=== PATIENT | female | born 1960 | race Caucasian/White ===

== ENCOUNTER → 2018-05-10 | Outpatient (CLI) | payer BC ==
--- NOTE | 2018-05-10 10:01 | Diagnostic Imaging Report ---
PROCEDURE: MRI right joint lower extremity without contrast. TECHNIQUE: Multiplanar, multisequence non contrast-enhanced MRI of the right lower extremity was accomplished. INDICATION: Right knee injury while playing soccer and stepping sideways. Right knee pain and swelling. COMPARISON: None FINDINGS: No acute fracture or dislocation is seen in the right knee. Alignment appears normal. There is a minimal right knee joint effusion. The articular cartilage in the patellofemoral compartment demonstrates thinning, surface irregularity, heterogeneity, with small fissures. There appears to be a small full-thickness defect at the superior pole of the patella (image 18 series 4). The articular cartilage in the medial compartment demonstrates thinning, and surface irregularity with no large full-thickness defect seen. The articular cartilage in the lateral compartment also demonstrates mild thinning with heterogeneity. The medial meniscus demonstrates a complex near full-thickness tear near the posterior root. The lateral meniscus appears intact. The anterior and posterior cruciate ligaments are intact. The medial collateral ligament is intact. The lateral collateral ligamentous complex is intact. The extensor mechanism and the medial and lateral retinacula are intact. There is mild subcutaneous edema at the anterior aspect of the knee. Prominent varicosity is seen anteriorly. No soft tissue fluid collections are seen. IMPRESSION: 1. Complex, near full-thickness tear near the posterior root of the medial meniscus in the right knee. 2. Minimal right knee joint effusion. 3. Mild cartilage loss, with very small full-thickness defect at the patella. Dictated by: Dictated on workstation # [id number]
== END ==
LOC: RAD 07:14
PROVIDERS: ATTEND Nurse Practitioner Family
DX: S83.241A Other tear of medial meniscus, current injury, right knee, initial encounter (principal); M94.8X8 Other specified disorders of cartilage, other site; Y93.66 Activity, soccer
CPT/HCPCS: 73721

== ENCOUNTER → 2018-07-11 | Outpatient (CLI) | payer BC | LOC: CARD 14:51 | PROVIDERS: ATTEND Internal Medicine Interventional Cardiology | DX: R00.2 Palpitations (principal); R06.02 Shortness of breath; R00.0 Tachycardia, unspecified; E78.5 Hyperlipidemia, unspecified; I10 Essential (primary) hypertension; R68.84 Jaw pain; E66.9 Obesity, unspecified | CPT/HCPCS: 93225; 93226 ==

== ENCOUNTER 2018-07-27 12:56 | Outpatient (RCR) | payer BC | END 2018-07-29 | disposition home or self-care (01) | LOC: CARD 12:56 | PROVIDERS: ATTEND Internal Medicine Interventional Cardiology | DX: R00.2 Palpitations (principal); R06.02 Shortness of breath; R00.0 Tachycardia, unspecified; R00.1 Bradycardia, unspecified | CPT/HCPCS: 93270; 93306 ==

== ENCOUNTER → 2018-08-16 | Outpatient (CLI) | payer BC ==
[~2018-08-16] MED LIST: CATHETER FLUSH 10 ML SYR IV PRN; REGADENOSON 0.4 MG/5 ML SYR (LEXISCAN) IV ONE
[2018-08-16 09:22] VITALS: BP 124/83
[2018-08-20 11:30] VITALS: BP 143/88
--- NOTE | 2018-08-20 11:30 | Cardiology Stress Test Report ---
Stress Test Report Type of NM Stress Test: Test Type: LEXISCAN 0.4MG/5ML Date of Procedure/Referring: Date of Procedure: Aug 16, 2018 PCP Calvin Powell MD Admitting Physician [facility] Indications: Shortness of breath, jaw pain Baseline Heart Rate: 81 Baseline Blood Pressure: Blood Pressure Systolic: 143 Blood Pressure Diastolic: 88 Baseline EKG: Baseline EKG: sinus rhythm Summary & Conclusion: Summary: The patient was brought to the stress lab after informed consent was taken. Stress test was performed according to the Lexiscan protocol. 0.4 mg of IV Lexiscan was given. Low-grade exercise was performed. Baseline EKG showed sinus rhythm at 81 BPM. Initial blood pressure was 143/88 mmHg. Maximum heart rate was 115 bpm and blood pressure 156/93 mmHg. Patient did not have any chest pain, arrhythmias or ST segment changes during the stress test. 10.58 mCi of Myoview were given for rest imaging and 30.1 mCi of Myoview given for stress imaging. Transient ischemic dilatation score 1.06, EF normal. Normal wall motion. Intermediate size, mild intensity reversible apical defect. Conclusion: Pharmacological stress test was negative for ischemia. Normal LV function with no wall motion abnormalities. Evidence of apical ischemia, coronary angiography is recommended. Calvin POWELL MD Aug 20, 2018 11:30
== END ==
LOC: CARD 07:42
PROVIDERS: ATTEND Internal Medicine Interventional Cardiology
DX: R00.2 Palpitations (principal); R06.02 Shortness of breath; R00.0 Tachycardia, unspecified; E78.5 Hyperlipidemia, unspecified; I10 Essential (primary) hypertension; R68.84 Jaw pain; E66.9 Obesity, unspecified
CPT/HCPCS: 78452; 93017

== ENCOUNTER 2018-08-27 10:04 | Day surgery (SDC) | payer BC ==
[2018-08-27] VITALS (13 sets, daily range): BP systolic 98–134; BP diastolic 62–94
[~2018-08-27] VITALS: Ht 161.3 cm; Wt 89.8 kg
[2018-08-27] MEDS ORDERED: NS IV 1000 ML 1,000 ML ONE (10:22)
[2018-08-27] MEDS ORDERED: HEParin (CATH LAB) 2,000 ML IV ONE (10:22)
[2018-08-27] MEDS ORDERED: LIDOCAINE 1% INJ 20 ML 20 ML VIAL ONE (10:22)
[2018-08-27] MEDS ORDERED: NS IV 1000 ML 1,000 ML IV SCH ×2 (10:26→14:20)
[2018-08-27 10:55] LABS: HEMOGLOBIN 15.3 G/DL (11.5-16.0); MEAN PLATELET VOLUME 11.2 FL (7.4-10.4); RED BLOOD COUNT 4.95 10^6/uL (4.35-5.85); RED CELL DISTRIBUTION WIDTH 13.3 % (10.0-14.5); WHITE BLOOD COUNT 7.7 10^3/uL (4.3-11.0)
[2018-08-27 11:09] LABS: INR 0.9 (0.8-1.4); PROTHROMBIN TIME PATIENT 12.3 SEC (12.2-14.7)
[2018-08-27 11:15] LABS: ALANINE AMINOTRANSFERASE 27 U/L (0-55); ALBUMIN 4.3 GM/DL (3.2-4.5); ALKALINE PHOSPHATASE 52 U/L (40-136); BILIRUBIN,TOTAL 0.4 MG/DL (0.1-1.0); BUN/CREATININE RATIO 12; CALCIUM 9.9 MG/DL (8.5-10.1); CARBON DIOXIDE 25 MMOL/L (21-32); CHLORIDE 106 MMOL/L (98-107); CREATININE SERUM 0.94 MG/DL (0.60-1.30); GFR ESTIMATED > 60; GLUCOSE 94 MG/DL (70-105); POTASSIUM 3.6 MMOL/L (3.6-5.0); SODIUM 143 MMOL/L (135-145); TOTAL PROTEIN 7.5 GM/DL (6.4-8.2)
[2018-08-27] MEDS ORDERED: AMLO5TAB7 PO (11:16)
[2018-08-27] MEDS ORDERED: HYDR12.56 PO (11:16)
[2018-08-27] MEDS ORDERED: L.AC1CAP6 PO (11:16)
[2018-08-27] MEDS ORDERED: CETI10CA PO (11:16)
[2018-08-27] MEDS ORDERED: LEVO25TA5 PO (11:16)
[2018-08-27] MEDS ORDERED: MIDAZOLAM 5 MG/5 ML (VERSED) VIAL ONE ×2 (11:48→12:30)
[2018-08-27] MEDS ORDERED: HEParin 1000 UNIT/ML (10ML VIAL) FOR BOLUS ONE (11:48)
[2018-08-27] MEDS ORDERED: fentaNYL INJECTION 100 MCG/2 ML AMP ONE (11:48)
[2018-08-27] MEDS ORDERED: VERAPAMIL 5 MG/2 ML (CALAN) VIAL IV ONE (11:48)
[2018-08-27] MEDS ORDERED: NITRO DRIP 25000 MCG/D5W 250 ML IV ONE (11:49)
[2018-08-27] MEDS ORDERED: FLU QUADRIvalent (5+ YOA) 2018-2019 (AFLURIA) 0.5 ML IM ONE (12:00)
--- OUTSIDE RECORDS SUMMARY | 2018-08-27 13:23 | XMS REPORT ---
Author Author HORNERAJITH Organization [facility] Address [address] [place] [address] Care Team Providers Care Comber Fixer Name Role Phone HORNERAJITH Muniz Unavailable PROBLEMS Type Condition ICD9-CM Code SSQ55-[id number] Code Onset Dates Condition Status SNOMED Code Problem GERD without esophagitis K21.9 Active 111982992 Problem Peripheral edema R60.9 Active 767563446 Problem Seasonal allergic rhinitis due to pollen J30.1 Active 69565969 Problem Hypothyroidism (acquired) E03.9 Active 787319235 Problem Essential hypertension I10 Active 53236357 Problem Body mass index (BMI) of 34.0-34.9 in adult Z68.34 Active 952601774 Problem Other obesity due to excess calories E66.09 Active 532448625 ALLERGIES No Information ENCOUNTERS Encounter Location Date Diagnosis [place] [id number] [place] [phone] Jun, [place] [address] [place] [id number] [place] [address] Apr, Pain in right knee M25.561 [place] [address] [place] [id number] [place] [address] Apr, Pain in right knee M25.561 ; Injury, unspecified, initial encounter T14.90XA ; Essential hypertension I10 and Peripheral edema R60.9 [facility] [address] [place] [address] Jan, Essential hypertension I10 ; Hypothyroidism (acquired) E03.9 ; GERD without esophagitis K21.9 ; Other obesity due to excess calories E66.09 ; Body mass index (BMI) of 34.0-34.9 in adult Z68.34 and Seasonal allergic rhinitis due to pollen J30.1 [facility] [address] [place] [id number] [place] [address] Dec, Acute non-recurrent maxillary sinusitis J01.00 IMMUNIZATIONS No Known Immunizations SOCIAL HISTORY Never Assessed REASON FOR VISIT med question PLAN OF CARE VITAL SIGNS MEDICATIONS Unknown Medications RESULTS No Results PROCEDURES No Known procedures INSTRUCTIONS MEDICATIONS ADMINISTERED No Known Medications MEDICAL (GENERAL) HISTORY Type Description Date Medical History HTN Medical History Hypothyroidism Medical History GERD Medical History Hiatal Hernia Surgical History partial thyroid removal 1987 Surgical History 1985 Surgical History EGD/Colonoscopy- Hiatal Hernia- otherwise normal 2014 Hospitalization History [facility] 1987 Hospitalization History 1985 Hospitalization History hypokalemia 01/2015 Hospitalization History child
--- OUTSIDE RECORDS SUMMARY | 2018-08-27 13:23 | XMS REPORT ---
Author Author AJITH HORNER Organization [facility] Address [address] [place] [address] Care Team Providers Care Salvager Helper Name Role Phone EVENSJORDANAJITH Unavailable PROBLEMS Type Condition ICD9-CM Code UII94-DI Code Onset Dates Condition Status SNOMED Code Problem Hypothyroidism (acquired) E03.9 Active 363598757 Problem GERD without esophagitis K21.9 Active 813641302 Problem Other obesity due to excess calories E66.09 Active 545142191 Problem Acquired hypothyroidism E03.9 Active 411484934 Problem Primary hypertension I10 Active 04435493 Problem Body mass index (BMI) of 34.0-34.9 in adult Z68.34 Active 838472901 Problem Essential hypertension I10 Active 05807110 Problem Peripheral edema R60.9 Active 566857346 Problem Seasonal allergic rhinitis due to pollen J30.1 Active 53537323 ALLERGIES No Information ENCOUNTERS Encounter Location Date Diagnosis [facility] [address] [address] Jun, Primary hypertension I10 ; Acquired hypothyroidism E03.9 ; Jaw pain, non-TMJ R68.84 and Chronic cough R05 [place] [address] [place] [id number] [place] [address] Jun, [facility] [address] [place] [id number] [place] [address] Apr, Pain in right knee M25.561 [facility] [address] [address] Apr, Pain in right knee M25.561 ; Injury, unspecified, initial encounter T14.90XA ; Essential hypertension I10 and Peripheral edema R60.9 [facility] [address] [address] Jan, Essential hypertension I10 ; Hypothyroidism (acquired) E03.9 ; GERD without esophagitis K21.9 ; Other obesity due to excess calories E66.09 ; Body mass index (BMI) of 34.0-34.9 in adult Z68.34 and Seasonal allergic rhinitis due to pollen J30.1 [facility] [address] [facility] [id number] [place] [address] Dec, Acute non-recurrent maxillary sinusitis J01.00 IMMUNIZATIONS No Known Immunizations SOCIAL HISTORY Never Assessed REASON FOR VISIT Requests return call PLAN OF CARE VITAL SIGNS MEDICATIONS Unknown Medications RESULTS No Results PROCEDURES No Known procedures INSTRUCTIONS MEDICATIONS ADMINISTERED No Known Medications MEDICAL (GENERAL) HISTORY Type Description Date Medical History HTN Medical History Hypothyroidism Medical History GERD Medical History Hiatal Hernia Medical History torn meniscus Surgical History partial thyroid removal 1987 Surgical History 1985 Surgical History EGD/Colonoscopy- Hiatal Hernia- otherwise normal 2014 Hospitalization History [facility] 1987 Hospitalization History 1985 Hospitalization History hypokalemia 01/2015 Hospitalization History child
--- OUTSIDE RECORDS SUMMARY | 2018-08-27 13:23 | XMS REPORT ---
Author Author HORNERAJITH Muniz Organization [facility] Address [address] [place] [address] Care Team Providers Care Visual Training Aide Name Role Phone HORNERAJITH Muniz Unavailable PROBLEMS Type Condition ICD9-CM Code [id number] Code Onset Dates Condition Status SNOMED Code Problem GERD without esophagitis K21.9 Active 950431401 Problem Peripheral edema R60.9 Active 990766243 Problem Seasonal allergic rhinitis due to pollen J30.1 Active 17088601 Problem Hypothyroidism (acquired) E03.9 Active 848974680 Problem Essential hypertension I10 Active 65012316 Problem Body mass index (BMI) of 34.0-34.9 in adult Z68.34 Active 550298910 Problem Other obesity due to excess calories E66.09 Active 635740541 ALLERGIES No Known Allergies ENCOUNTERS Encounter Location Date Diagnosis [place] [address] [place] [address] Jun, [place] [address] [place] [id number] [place] [address] Apr, Pain in right knee M25.561 [place] [address] [place] [id number] [place] [address] Apr, Pain in right knee M25.561 ; Injury, unspecified, initial encounter T14.90XA ; Essential hypertension I10 and Peripheral edema R60.9 [facility] [address] [place] [address] Jan, Essential hypertension I10 ; Hypothyroidism (acquired) E03.9 ; GERD without esophagitis K21.9 ; Other obesity due to excess calories E66.09 ; Body mass index (BMI) of 34.0-34.9 in adult Z68.34 and Seasonal allergic rhinitis due to pollen J30.1 [facility] [address] [facility] [id number] [address] Dec, Acute non-recurrent maxillary sinusitis J01.00 IMMUNIZATIONS No Known Immunizations SOCIAL HISTORY Never Assessed REASON FOR VISIT knee pain, Injured knee about 6 weeks ago playing soccer with grandchildren. Fell again last night and now pain is much worse -KYUNG Toscano PLAN OF CARE Activity Details Follow Up 3 Months, prn Reason:CHM/HTN VITAL SIGNS Height 63.5 in 2018-05-01 Weight 206 lbs 2018-05-01 Temperature 98.0 degrees Fahrenheit 2018-05-01 Heart Rate 94 bpm 2018-05-01 Respiratory Rate 20 2018-05-01 BMI 35.91 kg/m2 2018-05-01 Blood pressure systolic 120 mmHg 2018-05-01 Blood pressure diastolic 80 mmHg 2018-05-01 MEDICATIONS Medication Instructions Dosage Frequency Start Date End Date Duration Status Hydrochlorothiazide 12.5 MG Orally Once a day 1 capsule 24h 90 days Active Amlodipine Besy-Benazepril HCl 2.5-10 MG Orally Once a day 1 capsule 24h Active PredniSONE 10 mg Orally Once a day 4 tabs x 4 days, 3 tabs x 4 days, 2 tabs x 4 days, then 1 tab x 4 days 24h Apr, Apr, 16 days Active Levothyroxine Sodium 25 MCG Orally Once a day 1 capsule 24h Active RESULTS Name Result Date Reference Range Xray : Knee, Right 3 views (IN HOUSE) 2018-05-01 MRI : Knee, Right w/o contrast 2018-05-10 PROCEDURES Procedure Date Ordered Result Body Site X-RAY EXAM OF KNEE, 3 May 01, 2018 INSTRUCTIONS MEDICATIONS ADMINISTERED No Known Medications MEDICAL (GENERAL) HISTORY Type Description Date Medical History HTN Medical History Hypothyroidism Medical History GERD Medical History Hiatal Hernia Surgical History partial thyroid removal 1987 Surgical History 1985 Surgical History EGD/Colonoscopy- Hiatal Hernia- otherwise normal 2014 Hospitalization History [facility] 1987 Hospitalization History 1985 Hospitalization History hypokalemia 01/2015 Hospitalization History child
--- OUTSIDE RECORDS SUMMARY | 2018-08-27 13:23 | XMS REPORT ---
Author Author ABDIRASHID BHAGAT Organization [facility] Address [address] [place] [address] Care Team Providers Care Certified Registered Locksmith Name Role Phone ABDIRASHID BHAGAT Unavailable PROBLEMS Type Condition ICD9-CM Code AUH21-LI Code Onset Dates Condition Status SNOMED Code Problem Hypothyroidism (acquired) E03.9 Active 712814418 Problem GERD without esophagitis K21.9 Active 525733697 Problem Other obesity due to excess calories E66.09 Active 547348280 Problem Acquired hypothyroidism E03.9 Active 861954602 Problem Primary hypertension I10 Active 11593967 Problem Body mass index (BMI) of 34.0-34.9 in adult Z68.34 Active 353916578 Problem Essential hypertension I10 Active 29349427 Problem Peripheral edema R60.9 Active 182281859 Problem Seasonal allergic rhinitis due to pollen J30.1 Active 32268499 ALLERGIES No Known Allergies ENCOUNTERS Encounter Location Date Diagnosis [facility] [address] [address] Jun, Primary hypertension I10 ; Acquired hypothyroidism E03.9 ; Jaw pain, non-TMJ R68.84 and Chronic cough R05 [facility] [address] [place] [id number] [place] [address] Jun, [facility] [address] [place] [id number] [place] [address] Apr, Pain in right knee M25.561 [facility] [address] [address] Apr, Pain in right knee M25.561 ; Injury, unspecified, initial encounter T14.90XA ; Essential hypertension I10 and Peripheral edema R60.9 [facility] [address] [address] Jan, Essential hypertension I10 ; Hypothyroidism (acquired) E03.9 ; GERD without esophagitis K21.9 ; Other obesity due to excess calories E66.09 ; Body mass index (BMI) of 34.0-34.9 in adult Z68.34 and Seasonal allergic rhinitis due to pollen J30.1 [facility] [address] [facility] [id number] [place] [address] Dec, Acute non-recurrent maxillary sinusitis J01.00 IMMUNIZATIONS No Known Immunizations SOCIAL HISTORY Never Assessed REASON FOR VISIT neck and jaw pain-JENNIFER her, pt. having pain in her neck and jaw when she is carrying something heavy. pt. also want to discuss blood pressure meds. pt is also having palpations PLAN OF CARE Activity Details Follow Up prn Reason: Pending Test LIPID PANEL VITAL SIGNS Height 63.5 in 2018-07-03 Weight 205.4 lbs 2018-07-03 Temperature 96.5 degrees Fahrenheit 2018-07-03 Heart Rate 92 bpm 2018-07-03 Respiratory Rate 20 2018-07-03 BMI 35.81 kg/m2 2018-07-03 Blood pressure systolic 122 mmHg 2018-07-03 Blood pressure diastolic 84 mmHg 2018-07-03 MEDICATIONS Medication Instructions Dosage Frequency Start Date End Date Duration Status Hydrochlorothiazide 12.5 MG Orally Once a day 1 capsule 24h Active Claritin 10 MG Orally Once a day 1 tablet 24h Active Levothyroxine Sodium 25 MCG Orally Once a day 1 capsule 24h Active Amlodipine Besylate 5 mg Orally Once a day 1 tablet 24h Jun, 30 day(s) Active RESULTS No Results PROCEDURES Procedure Date Ordered Result Body Site ASSAY THYROID STIM HORMONE Jul 03, 2018 VENIPUNCT, ROUTINE* Jul 03, 2018 COMPREHEN METABOLIC PANEL Jul 03, 2018 ASSAY OF FREE THYROXINE Jul 03, 2018 LIPID PANEL Jul 03, 2018 COMPLETE CBC W/AUTO DIFF WBC Jul 03, 2018 INSTRUCTIONS MEDICATIONS ADMINISTERED No Known Medications [...]
--- OUTSIDE RECORDS SUMMARY | 2018-08-27 13:24 | XMS REPORT ---
Author Author JENNA RUTH [facility] Address [address] [place] [address] Care Team Providers Care Parts Puller Name Role Phone JENNA RUTH Unavailable PROBLEMS Type Condition ICD9-CM Code PPQ80-NZ Code Onset Dates Condition Status SNOMED Code Problem GERD without esophagitis K21.9 Active 109483816 Problem Peripheral edema R60.9 Active 211979202 Problem Seasonal allergic rhinitis due to pollen J30.1 Active 15526726 Problem Hypothyroidism (acquired) E03.9 Active 334679355 Problem Essential hypertension I10 Active 31119952 Problem Body mass index (BMI) of 34.0-34.9 in adult Z68.34 Active 585731462 Problem Other obesity due to excess calories E66.09 Active 720824161 ALLERGIES No Known Allergies ENCOUNTERS Encounter Location Date Diagnosis [place] [address] [place] [address] May, [place] [address] [place] [id number] [place] [address] Apr, Pain in right knee M25.561 [place] [address] [address] Apr, Pain in right knee M25.561 ; Injury, unspecified, initial encounter T14.90XA ; Essential hypertension I10 and Peripheral edema R60.9 [place] [address] [place] [address] Jan, Essential hypertension I10 ; Hypothyroidism (acquired) E03.9 ; GERD without esophagitis K21.9 ; Other obesity due to excess calories E66.09 ; Body mass index (BMI) of 34.0-34.9 in adult Z68.34 and Seasonal allergic rhinitis due to pollen J30.1 [facility] [address] [facility] [id number] [place] [address] Dec, Acute non-recurrent maxillary sinusitis J01.00 IMMUNIZATIONS No Known Immunizations SOCIAL HISTORY Never Assessed REASON FOR VISIT cough/congestion Pt c/o cough since before [place], states she has also had congestion for a few days JENNIFER [place] PLAN OF CARE Activity Details Follow Up prn Reason: VITAL SIGNS Weight 201.6 lbs 2018-01-02 Temperature 97.0 degrees Fahrenheit 2018-01-02 Heart Rate 88 bpm 2018-01-02 Respiratory Rate 18 2018-01-02 Blood pressure systolic 128 mmHg 2018-01-02 Blood pressure diastolic 82 mmHg 2018-01-02 MEDICATIONS Medication Instructions Dosage Frequency Start Date End Date Duration Status Tessalon Perles 100 MG Orally Three times a day 1 capsule as needed 8h Dec, Dec, 5 days Active Augmentin 875-125 MG Orally every 12 hrs 1 tablet 12h Dec,Dec 14 days Active Levothyroxine Sodium Active PredniSONE 20 MG Orally Once a day 3 tablet 24h Dec, Dec, 3 days Active RESULTS No Results PROCEDURES No Known procedures [...]
--- OUTSIDE RECORDS SUMMARY | 2018-08-27 13:24 | XMS REPORT | Continuity of Care Document ---
Author Author [facility] Organization [facility] Address Unknown Phone Unavailable Allergies Active Description Code Type Severity Reaction Onset Reported/Identified Relationship to Patient Clinical Status Yes No Allergy Information Available [id number] Drug Allergy Unknown N/A 2017 Medications There is no data. Problems Date Dx Coded Attending Type Code Diagnosis Diagnosed By 02/10/2018 ALMA MEZA LOGAN Ot 793.82 INCONCLUSIVE MAMMOGRAM 02/10/2018 ALMA MEZA LOGAN Ot V76.12 OTH SCREEN MAMMO-MALIGN NEOPLASM OF JOYA 02/10/2018 ALMA MEZA LOGAN Ot 793.81 MAMMOGRAPHIC MICROCLACIFICATION 02/10/2018 SUAD PARRA, BRENT S Ot 217 BENIGN NEOPLASM BREAST 02/12/2018 ALMA MEZA LOGAN Ot 793.82 INCONCLUSIVE MAMMOGRAM 02/12/2018 ALMA MEZA LOGAN Ot V76.12 OTH SCREEN MAMMO-MALIGN NEOPLASM OF JOYA 02/12/2018 ALMA MEZA LOGAN Ot 793.81 MAMMOGRAPHIC MICROCLACIFICATION 02/12/2018 SUAD PARRA, BRENT S Ot 217 BENIGN NEOPLASM BREAST 05/01/2018 ALMA MEZA LOGAN Ot 793.82 INCONCLUSIVE MAMMOGRAM 05/01/2018 ALMA MEZA LOGAN Ot V76.12 OTH SCREEN MAMMO-MALIGN NEOPLASM OF JOYA 05/01/2018 ALMA MEZA LOGAN Ot 793.81 MAMMOGRAPHIC MICROCLACIFICATION 05/01/2018 BRENT BORJAS MD S Ot 217 BENIGN NEOPLASM BREAST 05/03/2018 ALMA MEZA LOGAN Ot 793.82 INCONCLUSIVE MAMMOGRAM 05/03/2018 ALMA MEZA LOGAN Ot V76.12 OTH SCREEN MAMMO-MALIGN NEOPLASM OF JOYA 05/03/2018 ALMA MEZA LOGAN Ot 793.81 MAMMOGRAPHIC MICROCLACIFICATION 05/03/2018 BRENT BORJAS MD S Ot 217 BENIGN NEOPLASM BREAST 05/08/2018 ALMA MEZA LOGAN Ot 793.82 INCONCLUSIVE MAMMOGRAM 05/08/2018 MARQUEZ DO, LOGAN Ot V76.12 OTH SCREEN MAMMO-MALIGN NEOPLASM OF JOYA 05/08/2018 MARQUEZ DO LOGAN Ot 793.81 MAMMOGRAPHIC MICROCLACIFICATION 05/08/2018 SUAD PARRA, BRENT Cassidy Ot 217 BENIGN NEOPLASM BREAST 05/16/2018 AJITH HORNER DISTRICT BRANCH MANAGER Ot M94.8X8 OTHER SPECIFIED DISORDERS OF CARTILAGE, 05/16/2018 AJITH HORNER DISTRICT BRANCH MANAGER Ot S83.241A OTH TEAR OF MEDIAL MENISCUS, CURRENT INJ 05/16/2018 AJITH HORNER DISTRICT BRANCH MANAGER Ot Y93.66 ACTIVITY, SOCCER 06/18/2018 ALMA DO LOGAN Ot 793.82 INCONCLUSIVE MAMMOGRAM 06/18/2018 ALMA DO LOGAN Ot V76.12 OTH SCREEN MAMMO-MALIGN NEOPLASM OF JOYA 06/18/2018 ALMA DO LOGAN Ot 793.81 MAMMOGRAPHIC MICROCLACIFICATION 06/18/2018 SUAD PARRA, BRENT Cassidy Ot 217 BENIGN NEOPLASM BREAST 06/18/2018 AJITH HORNRE DISTRICT BRANCH MANAGER Ot M94.8X8 OTHER SPECIFIED DISORDERS OF CARTILAGE, 06/18/2018 AJITH HORNER DISTRICT BRANCH MANAGER Ot S83.241A OTH TEAR OF MEDIAL MENISCUS, CURRENT INJ 06/18/2018 AJITH HORNER DISTRICT BRANCH MANAGER Ot Y93.66 ACTIVITY, SOCCER 07/11/2018 ALMA DO LOGAN Ot 793.82 INCONCLUSIVE MAMMOGRAM 07/11/2018 ALMA MEZA LOGAN Ot V76.12 OTH SCREEN MAMMO-MALIGN NEOPLASM OF JOYA 07/11/2018 ALMA DO LOGAN Ot 793.81 MAMMOGRAPHIC MICROCLACIFICATION 07/11/2018 SUAD PARRA, BRENT Cassidy Ot 217 BENIGN NEOPLASM BREAST 07/11/2018 AJITH HORNER DISTRICT BRANCH MANAGER Ot M94.8X8 OTHER SPECIFIED DISORDERS OF CARTILAGE, 07/11/2018 AJITH HORNER DISTRICT BRANCH MANAGER Ot S83.241A OTH TEAR OF MEDIAL MENISCUS, CURRENT INJ 07/11/2018 AJITH HORNER R DISTRICT BRANCH MANAGER Ot Y93.66 ACTIVITY, SOCCER 07/11/2018 ALMA DO LOGAN Ot 793.82 INCONCLUSIVE MAMMOGRAM 07/11/2018 MARQUEZADI MEZA LOGAN Ot V76.12 OTH SCREEN MAMMO-MALIGN NEOPLASM OF JOYA 07/11/2018 EULA MARQUEZ DOI Ot 793.81 MAMMOGRAPHIC MICROCLACIFICATION 07/11/2018 SUAD PARRA, BRENT Cassidy Ot 217 BENIGN NEOPLASM BREAST 07/11/2018 AJITH HORNER APRN Ot M94.8X8 OTHER SPECIFIED DISORDERS OF CARTILAGE, 07/11/2018 AJITH HORNER APRN Ot S83.241A OTH TEAR OF MEDIAL MENISCUS, CURRENT INJ 07/11/2018 AJITH HORNER DISTRICT BRANCH MANAGER Ot Y93.66 ACTIVITY, SOCCER 07/25/2018 STEVE PARAR, Calvin ALVARENGA Ot E66.9 OBESITY, UNSPECIFIED 07/25/2018 Calvin WILSON MD Ot E78.5 HYPERLIPIDEMIA, UNSPECIFIED 07/25/2018 Calvin WILSON MD Ot I10 ESSENTIAL (PRIMARY) HYPERTENSION 07/25/2018 Calvin WILSON MD Ot R00.0 TACHYCARDIA, UNSPECIFIED 07/25/2018 Calvin WILSON MD Ot R00.2 PALPITATIONS 07/25/2018 Calvin WILSON MD Ot R06.02 SHORTNESS OF BREATH 07/25/2018 Calvin WILSON MD Ot R68.84 JAW PAIN 07/29/2018 Calvin WILSON MD Ot R00.0 TACHYCARDIA, UNSPECIFIED 07/29/2018 Calvin WILSON MD Ot R00.1 BRADYCARDIA, UNSPECIFIED 07/29/2018 Calvin WILSON MD Ot R00.2 PALPITATIONS 07/29/2018 Calvin WILSON MD Ot R06.02 SHORTNESS OF BREATH 07/31/2018 Calvin WILSON MD Ot R00.0 TACHYCARDIA, UNSPECIFIED 07/31/2018 Calvin WILSON MD Ot R00.1 BRADYCARDIA, UNSPECIFIED 07/31/2018 Calvin WILSON MD Ot R00.2 PALPITATIONS 07/31/2018 Calvin WILSON MD Ot R06.02 SHORTNESS OF BREATH 08/03/2018 Calvin WILSON MD Ot R00.0 TACHYCARDIA, UNSPECIFIED 08/03/2018 STEVE PARRA, Calvin ELENACOLETTE Ot R00.1 BRADYCARDIA, UNSPECIFIED 08/03/2018 STEVE PARRA, Calvin ELENACOLETTE Ot R00.2 PALPITATIONS 08/03/2018 STEVE PARRA, Calvin ELENACOLETTE Ot R06.02 SHORTNESS OF BREATH 08/05/2018 TSEVE PARRA, Calvin ELENACOLETTE Ot R00.0 TACHYCARDIA, UNSPECIFIED 08/05/2018 STEVE PARRA, Calvin ELENACOLETTE Ot R00.1 BRADYCARDIA, UNSPECIFIED 08/05/2018 STEVE PARRA, Calvin ELENACOLETTE Ot R00.2 PALPITATIONS 08/05/2018 STEVE PARRA, Calvin COLETTE Ot R06.02 SHORTNESS OF BREATH 08/20/2018 STEVE PARRA, Calvin ELENACOLETTE Ot E66.9 OBESITY, UNSPECIFIED 08/20/2018 STEVE PARRA Calvin COLETTE Ot E78.5 HYPERLIPIDEMIA, UNSPECIFIED 08/20/2018 STEVE PARRA, Calvin ELENACOLETTE Ot I10 ESSENTIAL (PRIMARY) HYPERTENSION 08/20/2018 STEVE PARRA Calvin ELENACOLETTE Ot R00.0 TACHYCARDIA, UNSPECIFIED 08/20/2018 STEVE PARRA, Calvin ELENACOLETTE Ot R00.2 PALPITATIONS 08/20/2018 STEVE PARRA Calvin ELENACOLETTE Ot R06.02 SHORTNESS OF BREATH 08/20/2018 STEVE PARRA Calvin COLETTE Ot R68.84 JAW PAIN Procedures There is no data. Results Test Result Range Automated blood complete blood count (hemogram) panel - 08/27/18 10:50 Blood leukocytes automated count (number/volume) 7.7 10*3/uL 4.3-11.0 Blood erythrocytes automated count (number/volume) 4.95 10*6/uL 4.35-5.85 Venous blood hemoglobin measurement (mass/volume) 15.3 g/dL 11.5-16.0 Blood hematocrit (volume fraction) 47 % 35-52 Automated erythrocyte mean corpuscular volume 95 [foz_us] 80-99 Automated erythrocyte mean corpuscular hemoglobin (mass per erythrocyte) 31 pg 25-34 Automated erythrocyte mean corpuscular hemoglobin concentration measurement ( mass/volume) 33 g/dL 32-36 Automated erythrocyte distribution width ratio 13.3 % 10.0-14.5 Automated blood platelet count (count/volume) 285 10*3/uL 130-400 Automated blood platelet mean volume measurement 11.2 [foz_us] 7.4-10.4 PT panel in platelet poor plasma by coagulation assay - 08/27/18 10:50 Prothrombin time (PT) in platelet poor plasma by coagulation assay 12.3 s 12.2-14.7 INR in platelet poor plasma or blood by coagulation assay 0.9 0.8-1.4 Activated partial thromboplastin time (aPTT) in platelet poor plasma bycoagulation assay - 08/27/18 10:50 Activated partial thromboplastin time (aPTT) in platelet poor plasma bycoagulation assay 28 s 24-35 Comprehensive metabolic panel - 08/27/18 10:50 Serum or plasma sodium measurement (moles/volume) 143 mmol/L 135-145 Serum or plasma potassium measurement (moles/volume) 3.6 mmol/L 3.6-5.0 Serum or plasma chloride measurement (moles/volume) 106 mmol/L 98-107 Carbon dioxide 25 mmol/L 21-32 Serum or plasma anion gap determination (moles/volume) 12 mmol/L 5-14 Serum or plasma urea nitrogen measurement (mass/volume) 11 mg/dL 7-18 Serum or plasma creatinine measurement (mass/volume) 0.94 mg/dL 0.60-1.30 Serum or plasma urea nitrogen/creatinine mass ratio 12 NRG Serum or plasma creatinine measurement with calculation of estimated glomerular filtration rate > NRG Serum or plasma glucose measurement (mass/volume) 94 mg/dL 70-105 Serum or plasma calcium measurement (mass/volume) 9.9 mg/dL 8.5-10.1 Serum or plasma total bilirubin measurement (mass/volume) 0.4 mg/dL 0.1-1.0 Serum or plasma alkaline phosphatase measurement (enzymatic activity/volume) 52 U/L 40-136 Serum or plasma aspartate aminotransferase measurement (enzymatic activity/ volume) 24 U/L 5-34 Serum or plasma alanine aminotransferase measurement (enzymatic activity/volume ) 27 U/L 0-55 Serum or plasma protein measurement (mass/volume) 7.5 g/dL 6.4-8.2 Serum or plasma albumin measurement (mass/volume) 4.3 g/dL 3.2-4.5 CALCIUM CORRECTED 9.7 mg/dL 8.5-10.1 Encounters ACCT No. Visit Date/Time Discharge Status Pt. Type Provider Facility Loc./Unit Complaint [id number] 02/06/2015 12:16:16 02/06/2015 23:59:59 CLS Outpatient Kyle Champagne [id number] 02/03/2015 15:25:24 02/03/2015 23:59:59 CLS Outpatient Kyle Champagne [id number] 01/28/2015 16:21:20 01/28/2015 23:59:59 CLS Outpatient Kyle Champagne [id number] 08/16/2018 07:42:00 08/16/2018 23:59:59 CLS Outpatient Calvin WILSON MD [facility] CARD HTN,SOB,JAW PAIN [id number] 08/02/2018 13:00:00 08/02/2018 23:59:59 CLS Preadmit Calvin WILSON MD [facility] CARD PALPITATIONS,SOB,SINUS TACHYCARDIA [id number] 07/27/2018 12:56:00 07/29/2018 00:01:00 DIS Outpatient Calvin WILSON MD [facility] CARD PALPITATIONS,SOB,SINUS TACHYCARDIA [id number] 07/06/2018 10:14:00 07/06/2018 23:59:59 CLS Preadmit Calvin WILSON MD [facility] CARD SOB,JAW PAIN, HYPERLIPIDEMA,HTN,SINUS TACHYCARDIA [id number] 07/06/2018 10:12:00 07/06/2018 23:59:59 CLS Preadmit Calvin WILSON MD [facility] CARD HYPERLIPIDEMIA,HTN,SOB, JAW PAIN,OBESITY [id number] 07/06/2018 10:10:00 07/06/2018 23:59:59 CLS Outpatient Calvin WILSON MD [facility] CARD PALPITATIONS,SOB,SINUS TACHYCARDIA [id number] 05/16/2018 14:56:00 05/16/2018 23:59:59 [facility]LS [facility]read[facility] [id number] 05/10/2018 07:14:00 05/10/2018 23:59:59 CLS Outpatient AJITH HORNER [employer] BR[employer] MANAGER [facility] RAD PAIN IN RIGHT KNEE [id number] 2013 10:08:00 2013 23:59:59 CLS Outpatient BRENT BORJAS MD [facility] RAD RT BREAST CALCIFICATIONS [id number] 08/14/2013 07:49:00 08/14/2013 23:59:59 CLS Outpatient LOGAN MARQUEZ DO [facility] RAD ABNORMAL MAMMO [id number] 07/23/2013 15:40:00 07/23/2013 23:59:59 CLS Outpatient LOGAN MARQUEZ DO [facility] RAD SCREENING [id number] 08/27/2018 12:00:00 Calvin Hensley MD [facility] CATH ABNORMAL STRESS TEST
--- OUTSIDE RECORDS SUMMARY | 2018-08-27 13:24 | XMS REPORT ---
Author Author HORNERAJITH Muniz Organization [facility] Address [address] [place] [address] Care Team Providers Care Handle Attacher Name Role Phone HORNERAJITH Muniz Unavailable PROBLEMS Type Condition ICD9-CM Code ACV74-OH Code Onset Dates Condition Status SNOMED Code Problem GERD without esophagitis K21.9 Active 483077095 Problem Peripheral edema R60.9 Active 756684756 Problem Seasonal allergic rhinitis due to pollen J30.1 Active 51827639 Problem Hypothyroidism (acquired) E03.9 Active 527537726 Problem Essential hypertension I10 Active 80724233 Problem Body mass index (BMI) of 34.0-34.9 in adult Z68.34 Active 700523425 Problem Other obesity due to excess calories E66.09 Active 888472790 ALLERGIES No Known Allergies ENCOUNTERS Encounter Location Date Diagnosis [place] [id number] [place] [address] Jun, [place] [address] [place] [id number] [place] [address] Apr, Pain in right knee M25.561 [place] [address] [place] [id number] [place] [address] Apr, Pain in right knee M25.561 ; Injury, unspecified, initial encounter T14.90XA ; Essential hypertension I10 and Peripheral edema R60.9 [facility] [address] [place] [address] Jan, Essential hypertension I10 ; Hypothyroidism (acquired) E03.9 ; GERD without esophagitis K21.9 ; Other obesity due to excess calories E66.09 ; Body mass index (BMI) of 34.0-34.9 in adult Z68.34 and Seasonal allergic rhinitis due to pollen J30.1 [facility] [address] [facility] [id number] [address] Dec, Acute non-recurrent maxillary sinusitis J01.00 IMMUNIZATIONS No Known Immunizations SOCIAL HISTORY Never Assessed REASON FOR VISIT Establish Care. KYUNG Santamaria, Sinus drainage/headache/cough. PLAN OF CARE Activity Details Follow Up 3 Months, prn Reason:CHM/HTN VITAL SIGNS Height 63.5 in 2018-02-20 Weight 196 lbs 2018-02-20 Temperature 98.0 degrees Fahrenheit 2018-02-20 Heart Rate 97 bpm 2018-02-20 Respiratory Rate 20 2018-02-20 Oximetry 97 % 2018-02-20 BMI 34.17 kg/m2 2018-02-20 Blood pressure systolic 124 mmHg 2018-02-20 Blood pressure diastolic 84 mmHg 2018-02-20 MEDICATIONS Medication Instructions Dosage Frequency Start Date End Date Duration Status Omeprazole 20 MG Orally Once a day 1 capsule 24h Active Hydrochlorothiazide 12.5 MG Orally PRN 1 capsule Active Amlodipine Besy-Benazepril HCl 2.5-10 MG Orally Once a day 1 capsule 24h Active Levothyroxine Sodium 25 MCG Orally Once a day 1 capsule 24h Active RESULTS No Results PROCEDURES No Known [...]
--- NOTE | 2018-08-27 14:22 | Cardiac Procedure Note-CS/ASA ---
Pre-Procedure Note Pre-Op Procedure Note H&P Reviewed The H&P was reviewed, patient examined and no changes noted. Date H&P Reviewed: Aug 27, 2018 Time H&P Reviewed: 12:00 Conscious Sedation Pre-Proced Time 12:00 ASA Score 3 For ASA 3 and 4: Consider anesthesia and medical clearance. Also, for patients with a history of failed moderate sedation consider anesthesia. Airway Lungs Heart ASA score ASA 1: a normal healthy patient ASA 2: a patient with a mild systemic disease (mid diabetes, controlled hypertension, obesity ASA 3: a patient with a severe systemic disease that limits activity (angina , COPD, prior Myocardial infarction) ASA 4: a patient with an incapacitating disease that is a constant threat to life (CHF, renal failure) ASA 5: a moribund patient not expected to survive 24 hrs. (ruptured aneurysm) ASA 6: a declared brain patient whose organs are being harvested. For emergent operations, add the letter E after the classification Mallampati Classification Grade 1 Sedation Plan Analgesia, Amnesia, Plan communicated to team members, Discussed options with patient/fam, Discussed risks with patient/fam The patient is an appropriate candidate to undergo the planned procedure, sedation, and anesthesia. The patient immediately re-assessed prior to indication. Calvin WILSON MD Aug 27, 2018 2:22 pm
[2018-08-27] MEDS ORDERED: PATIENT MAY USE OWN MEDS, ALL PO SCH (14:30)
--- NOTE | 2018-08-27 14:33 | Coronary Angiography Report ---
Coronary Angiography Report DATE OF PROCEDURE: 08/27/18 INDICATION: Recurrent chest pain, abnormal nuclear stress test. PREOPERATIVE DIAGNOSIS: Recurrent chest pain, abnormal nuclear stress test. POSTOPERATIVE DIAGNOSIS: Patent epicardial coronary arteries. HISTORY: This is a 57-year-old lady with history of recurrent chest pain. Nuclear stress test showed reversible ischemia. Therefore, the patient was scheduled for coronary angiography. PROCEDURES PERFORMED: 1.Coronary angiography. 2.Left heart catheterization. 3. Aortic arch angiogram. COMPLICATIONS: None. SPECIMENS: None. ESTIMATED BLOOD LOSS: 10 mL ANESTHESIA: Conscious sedation ANTICOAGULATION: None. CONTRAST: 43 mL. FLUOROSCOPY: 2 minutes. FLOUROSCOPY DOSE: 277 mgy. PROCEDURE DETAILS: The patient is a 57 female and was brought to the veterinarian laboratory animal care after informed consent was taken. All the risks and complications were explained in detail; this included the risk of bleeding, vascular damage, stroke , CO and even . The patient was draped and prepped in the usual sterile fashion. We attempted access in the right radial artery, we were able to puncture the artery but but we could not advance the wire from mid arm upwards. We took the wire and access needle out and held pressure. We attempted a couple of times more but due to spasm were not able to gain access. Access was gained in the right femoral artery with a 6 Frisian sheath. Coronary angiography and left heart catheterization was performed with a JR4, JL 4 catheter respectively. Aortic arch angiogram was performed with a JR4 catheter. FINDINGS: 1.Left main: Patent. 2.LAD: Mild diffuse disease from the mid segment distally. 3.Left circumflex artery: Patent. 4.RCA: Patent. 5.Left heart catheterization: Aortic pressure 111/65 mmHg. LV pressure 123/0 mmHg. LVEDP 16 mmHg. Normal LV function with no wall motion abnormalities. No gradient across the aortic valve. 6. Aortic arch angiogram: No evidence of aneurysm or dissection. Patent proximal segments of the great arteries including brachycephalic artery, common carotid artery and left subclavian artery. CONCLUSIONS: Patent epicardial coronary arteries. Normal LV function. Continue primary prevention measures. Johana Powell MD, FACP, FACC, [facility] Interventional Cardiology Calvin POWELL MD Aug 27, 2018 2:33 pm
--- NOTE | 2018-08-27 14:36 | Discharge Inst-Post CATH ---
Discharge Inst-CATH Post Cardiac Cath D/C Inst Follow Up/Plan Dr. Powell in 3-4 weeks. CARDIAC CATH DISCHARGE INSTRUCTIONS *Hold Metformin for 48 hours post heart cath. ACTIVITY * Go Home directly and rest. * Limit activity of the leg (or wrist if it was used) for 7 days including aerobics, swimming, jogging, bicycling, etc. * Restrict stair-climbing for 7 days if possible, if not, climb up with your non -cath leg, then bring together on the same step. * Avoid lifting, pushing, pulling or excessive movement of the affected extremity for 7 days. * Customary sexual activity may be resumed after 2 days-use caution not to use a position that strains or causes pain to the affected extremity. * No driving for 24 hours. * NO SMOKING. * Avoid straining for bowel movements for 7 days. * Gentle walking on level ground is allowed. * Returning to work will depend on the type of procedure and the results. Your doctor will discuss this with you. CALL YOUR DOCTOR FOR ANY OF THE FOLLOWING: *If bleeding from the puncture site occurs- Apply gentle pressure to site with clean cloth and call your doctor or EMS. * If a knot or lump forms under the skin, increases in size, or causes pain. * If bruising appears to be worsening or moving further down your leg instead of disappearing. * Temperature above 101 F. CARE OF YOUR GROIN INCISION; * Bruising or purple discoloration of the skin near the puncture site is common. * You may shower only, no bathtub bathing for 5 days. Be careful to avoid slipping as your leg may feel stiff. * If a closure device was used on your femoral artery, please see the attached guide regarding care of the device and your leg. * Leave the dressing on, until removed by office staff. CARE OF YOUR WRIST INCISION; * Bruising or purple discoloration of the skin near the puncture site is common. * You may shower. * DO NOT submerge wrist. * Leave dressing on, until removed by office staff.. Calvin POWELL MD Aug 27, 2018 2:36 pm
--- NOTE | 2018-08-27 14:37 | Cardiology Discharge Summary ---
Diagnosis/Chief Complaint Date of Admission 08/27/2018 Date of Discharge 08/27/2018 Admission Diagnosis Recurrent chest pain, hypertension, abnormal nuclear stress test Final/Discharge Diagnosis Patent epicardial coronary arteries. Chief Complaint/HPI Chief Complaint/HPI This is a 57-year-old lady with history of recurrent chest pain. Nuclear stress test showed reversible ischemia. Therefore, the patient was scheduled for coronary angiography. Discharge Summary Procedures Coronary angiography showed patent epicardial coronary arteries. Normal LV function with normal LVEDP. Discharge Physical Examination Stable. Hospital Course Unremarkable. Pending Labs Laboratory Tests 08/27/18 10:50: White Blood Count 7.7, Red Blood Count 4.95, Hemoglobin 15.3, Hematocrit 47, Mean Corpuscular Volume 95, Mean Corpuscular Hemoglobin 31, Mean Corpuscular Hemoglobin Concent 33, Red Cell Distribution Width 13.3, Platelet Count 285, Mean Platelet Volume 11.2, Prothrombin Time 12.3, INR Comment 0.9, Activated Partial Thromboplast Time 28, Sodium Level 143, Potassium Level 3.6, Chloride Level 106, Carbon Dioxide Level 25, Anion Gap 12, Blood Urea Nitrogen 11, Creatinine 0.94, Estimat Glomerular Filtration Rate > 60, BUN/Creatinine Ratio 12, Glucose Level 94, Calcium Level 9.9, Corrected Calcium 9.7, Total Bilirubin 0.4, Aspartate Amino Transf (AST/SGOT) 24, Alanine Aminotransferase (ALT/SGPT) 27, Alkaline Phosphatase 52, Total Protein 7.5, Albumin 4.3 Discussion & Recommendations Discussion Discharge instructions discussed at length with the patient. Follow up appt.: Dr. Powell in 3-4 weeks. Dicharge Diet: Cardiac Diet Activity as Tolerated: Yes Home Medications Reviewed patient Home Medication Reconciliation performed by pharmacy medication reconciliations copier technician and/or nursing. Patients Allergies have been reviewed. Discharge Home Medications: Reviewed and agree with Discharge Medication list on patient's Discharge Instruction sheet Condition at discharge Stable. Instructions to patient/family Dr. Powell in 3-4 weeks. Calvin POWELL MD Aug 27, 2018 2:37 pm
== END 2018-08-27 18:03 | disposition home or self-care (01) ==
LOC: CATH 10:04 → SDC 13:09 → EDPENDDISTM 18:00 → CATH 18:03
PROVIDERS: ATTEND Internal Medicine Interventional Cardiology
DX: R07.9 Chest pain, unspecified (principal); I10 Essential (primary) hypertension
CPT/HCPCS: 36140; 36221; 36415; 80053; 85027; 85610; 85730; 87081; 93458

== ENCOUNTER 2018-10-09 15:48 | Outpatient (CLI) | payer BC ==
[~2018-10-09] VITALS: Ht 161.3 cm; Wt 93.0 kg
[~2018-10-09 15:48] MED LIST changes: +AMLO5TAB7 PO; -CATHETER FLUSH 10 ML SYR IV PRN; +CETI10CA PO; +HYDR12.56 PO; +L.AC1CAP6 PO; +LEVO25TA5 PO; +METO-387 PO; -REGADENOSON 0.4 MG/5 ML SYR (LEXISCAN) IV ONE
== END 2018-10-09 16:05 | disposition home or self-care (01) ==
LOC: PREOP 15:48
PROVIDERS: ATTEND Internal Medicine Interventional Cardiology
DX: Z01.818 Encounter for other preprocedural examination (principal)

== ENCOUNTER 2018-10-15 09:03 | Day surgery (SDC) | payer BC ==
[~2018-10-15] VITALS: Ht 161.3 cm; Wt 93.0 kg
[2018-10-15] VITALS (18 sets, daily range): BP systolic 102–142; BP diastolic 63–82
--- OUTSIDE RECORDS SUMMARY | 2018-10-15 09:08 | XMS REPORT ---
Author Author AJITH Wright Organization [facility] Address [address] [place] [address] Care Team Providers Care Job Compositor Name Role Phone AJITH Wright Unavailable PROBLEMS Type Condition ICD9-CM Code TUS61-RF Code Onset Dates Condition Status SNOMED Code Problem Hypothyroidism (acquired) E03.9 Active 155741023 Problem GERD without esophagitis K21.9 Active 472929730 Problem Other obesity due to excess calories E66.09 Active 386727995 Problem Acquired hypothyroidism E03.9 Active 904297683 Problem Primary hypertension I10 Active 30807085 Problem Body mass index (BMI) of 34.0-34.9 in adult Z68.34 Active 667014593 Problem Essential hypertension I10 Active 22540349 Problem Peripheral edema R60.9 Active 144866522 Problem Seasonal allergic rhinitis due to pollen J30.1 Active 38875862 ALLERGIES No Information ENCOUNTERS Encounter Location Date Diagnosis [facility] [address] [address] Sep, [facility] [address] [address] Aug, [facility] [address] [address] Aug, Primary hypertension I10 [facility] [address] [place] [id number] [place] [address] Jul, Primary hypertension I10 [facility] [address] [address] Jun, 2018 Primary hypertension I10 ; Acquired hypothyroidism E03.9 ; Jaw pain, non-TMJ R68.84 and Chronic cough R05 [facility] [address] [address] Jun, [facility] [address] [facility] [id number] [address] Apr, Pain in right knee M25.561 [facility] [address] [place] [id number], [place] [address] Apr, Pain in right knee M25.561 ; Injury, unspecified, initial encounter T14.90XA ; Essential hypertension I10 and Peripheral edema R60.9 [facility] [address] [facility] [id number] [id number] Jan, Essential hypertension I10 ; Hypothyroidism (acquired) E03.9 ; GERD without esophagitis K21.9 ; Other obesity due to excess calories E66.09 ; Body mass index (BMI) of 34.0-34.9 in adult Z68.34 and Seasonal allergic rhinitis due to pollen J30.[address] [facility] [address] [place] [id number], [place] [address] Dec, Acute non-recurrent maxillary sinusitis J01.00 IMMUNIZATIONS No Known Immunizations SOCIAL HISTORY Never Assessed REASON FOR VISIT Re:Schedule Follow Up Appointment PLAN OF CARE VITAL SIGNS MEDICATIONS Unknown [...]
--- OUTSIDE RECORDS SUMMARY | 2018-10-15 09:09 | XMS REPORT ---
Author Author KRYSTA DELGADILLO [facility] Address [address] [place] [address] Care Team Providers Care Table Maker Name Role Phone KRYSTA DELGADILLO Unavailable PROBLEMS Type Condition ICD9-CM Code [id number] Code Onset Dates Condition Status SNOMED Code Problem Hypothyroidism (acquired) E03.9 Active 909201470 Problem GERD without esophagitis K21.9 Active 135213776 Problem Other obesity due to excess calories E66.09 Active 996968904 Problem Acquired hypothyroidism E03.9 Active 426400257 Problem Primary hypertension I10 Active 99158301 Problem Body mass index (BMI) of 34.0-34.9 in adult Z68.34 Active 778289213 Problem Essential hypertension I10 Active 15788596 Problem Peripheral edema R60.9 Active 029666201 Problem Seasonal allergic rhinitis due to pollen J30.1 Active 32898357 ALLERGIES No Information ENCOUNTERS Encounter Location Date Diagnosis [place] [id number] [address] Sep, [place] [address] [address] Aug, Primary hypertension I10 [facility] [address] [address] Jul, Primary hypertension I10 [facility] [address] [address] Jun, Primary hypertension I10 ; Acquired hypothyroidism E03.9 ; Jaw pain, non-TMJ R68.84 and Chronic cough R05 [facility] [address] [address] Jun, [facility] [address] [address] Apr, Pain in right knee M25.561 [facility] [address] [facility] [id number] [place] [address] Apr, Pain in right knee M25.561 ; Injury, unspecified, initial encounter T14.90XA ; Essential hypertension I10 and Peripheral edema R60.9 [facility] [address] [facility] [id number] [address] Jan, Essential hypertension I10 ; Hypothyroidism (acquired) E03.9 ; GERD without esophagitis K21.9 ; Other obesity due to excess calories E66.09 ; Body mass index (BMI) of 34.0-34.9 in adult Z68.34 and Seasonal allergic rhinitis due to pollen J30.[address] [facility] [address] [facility] [id number] [place] [address] Dec, Acute non-recurrent maxillary sinusitis J01.00 IMMUNIZATIONS No Known Immunizations SOCIAL HISTORY Never Assessed REASON FOR VISIT refill request PLAN OF CARE VITAL SIGNS MEDICATIONS Medication Instructions Dosage Frequency Start Date End Date Duration Status Levothyroxine Sodium 25 MCG Orally Once a [...]
--- OUTSIDE RECORDS SUMMARY | 2018-10-15 09:10 | XMS REPORT | Continuity of Care Document ---
Author Author [facility] Organization [facility] Address Unknown Phone Unavailable Allergies Active Description Code Type Severity Reaction Onset Reported/Identified Relationship to Patient Clinical Status Yes No Allergy Information Available [id number] Drug Allergy Unknown N/A 2017 Yes No Known Drug Allergies [id number] Drug Allergy Unknown N/A 10/09/2018 Medications There is no data. Problems Date Dx Coded Attending Type Code Diagnosis Diagnosed By 02/10/2018 LOGAN MARQUEZ DO Ot 793.82 INCONCLUSIVE MAMMOGRAM 02/10/2018 ALMA MEZA LOGAN Ot V76.12 OTH SCREEN MAMMO-MALIGN NEOPLASM OF JOYA 02/10/2018 EULA MARQUEZ DOI Ot 793.81 MAMMOGRAPHIC MICROCLACIFICATION 02/10/2018 SUAD PARRA, BRENT S Ot 217 BENIGN NEOPLASM BREAST 02/12/2018 ALMA MEZA LOGAN Ot 793.82 INCONCLUSIVE MAMMOGRAM 02/12/2018 EULA MARQUEZ DOI Ot V76.12 OTH SCREEN MAMMO-MALIGN NEOPLASM OF JOYA 02/12/2018 ALMA MEZA LOGAN Ot 793.81 MAMMOGRAPHIC MICROCLACIFICATION 02/12/2018 BRENT BORJAS MD S Ot 217 BENIGN NEOPLASM BREAST 05/01/2018 EULA MARQUEZ DOI Ot 793.82 INCONCLUSIVE MAMMOGRAM 05/01/2018 EULA MARQUEZ DOI Ot V76.12 OTH SCREEN MAMMO-MALIGN NEOPLASM OF JOYA 05/01/2018 ALMA MEZA LOGAN Ot 793.81 MAMMOGRAPHIC MICROCLACIFICATION 05/01/2018 SUAD PARRA, BRENT S Ot 217 BENIGN NEOPLASM BREAST 05/03/2018 EULA MARQUEZ DOI Ot 793.82 INCONCLUSIVE MAMMOGRAM 05/03/2018 ALMA MEZA LOGAN Ot V76.12 OTH SCREEN MAMMO-MALIGN NEOPLASM OF JOYA 05/03/2018 EULA MARQUEZ DOI Ot 793.81 MAMMOGRAPHIC MICROCLACIFICATION 05/03/2018 SUAD MD, BRENT S Ot 217 BENIGN NEOPLASM BREAST 05/08/2018 MARQUEZ DO, LOGAN Ot 793.82 INCONCLUSIVE MAMMOGRAM 05/08/2018 MARQUEZ DO, LOGAN Ot V76.12 OTH SCREEN MAMMO-MALIGN NEOPLASM OF JOYA 05/08/2018 MARQUEZ DO, LOGAN Ot 793.81 MAMMOGRAPHIC MICROCLACIFICATION 05/08/2018 SUAD PARRA, BRENT S Ot 217 BENIGN NEOPLASM BREAST 05/16/2018 AJITH HORNER SCIENTIST IMMUNOLOGY Ot M94.8X8 OTHER SPECIFIED DISORDERS OF CARTILAGE, 05/16/2018 AJITH HORNER R SCIENTIST IMMUNOLOGY Ot S83.241A OTH TEAR OF MEDIAL MENISCUS, CURRENT INJ 05/16/2018 AJITH HORNER SCIENTIST IMMUNOLOGY Ot Y93.66 ACTIVITY, SOCCER 06/18/2018 ALMA DO LOGAN Ot 793.82 INCONCLUSIVE MAMMOGRAM 06/18/2018 ALMA DO LOGAN Ot V76.12 OTH SCREEN MAMMO-MALIGN NEOPLASM OF JOYA 06/18/2018 ALMA DO LOGAN Ot 793.81 MAMMOGRAPHIC MICROCLACIFICATION 06/18/2018 SUAD PARRA, BRENT S Ot 217 BENIGN NEOPLASM BREAST 06/18/2018 AJITH HORNER SCIENTIST IMMUNOLOGY Ot M94.8X8 OTHER SPECIFIED DISORDERS OF CARTILAGE, 06/18/2018 AJITH HORNER SCIENTIST IMMUNOLOGY Ot S83.241A OTH TEAR OF MEDIAL MENISCUS, CURRENT INJ 06/18/2018 AJITH HORNER R SCIENTIST IMMUNOLOGY Ot Y93.66 ACTIVITY, SOCCER 07/11/2018 ALMA DO, LOGAN Ot 793.82 INCONCLUSIVE MAMMOGRAM 07/11/2018 ALMA DO LOGAN Ot V76.12 OTH SCREEN MAMMO-MALIGN NEOPLASM OF JOYA 07/11/2018 MARQUEZ DO, LOGAN Ot 793.81 MAMMOGRAPHIC MICROCLACIFICATION 07/11/2018 SUAD PARRA, BRENT S Ot 217 BENIGN NEOPLASM BREAST 07/11/2018 AJITH HORNER SCIENTIST IMMUNOLOGY Ot M94.8X8 OTHER SPECIFIED DISORDERS OF CARTILAGE, 07/11/2018 AJITH HORNER R SCIENTIST IMMUNOLOGY Ot S83.241A OTH TEAR OF MEDIAL MENISCUS, CURRENT INJ 07/11/2018 AJITH HORNER R SCIENTIST IMMUNOLOGY Ot Y93.66 ACTIVITY, SOCCER 07/11/2018 LOGAN MARQUEZ DO Ot 793.82 INCONCLUSIVE MAMMOGRAM 07/11/2018 MARQUEZLOGAN JOSHI DO Ot V76.12 OTH SCREEN MAMMO-MALIGN NEOPLASM OF JOYA 07/11/2018 LOGAN MARQUEZ DO Ot 793.81 MAMMOGRAPHIC MICROCLACIFICATION 07/11/2018 SUAD PARRA, BRENT S Ot 217 BENIGN NEOPLASM BREAST 07/11/2018 AJITH HORNER APRN Ot M94.8X8 OTHER SPECIFIED DISORDERS OF CARTILAGE, 07/11/2018 AJITH HORNER SCIENTIST IMMUNOLOGY Ot S83.241A OTH TEAR OF MEDIAL MENISCUS, CURRENT INJ 07/11/2018 AJITH HORNER APRN Ot Y93.66 ACTIVITY, SOCCER 07/25/2018 STEVE PARRA, Calvin ALVARENGA Ot E66.9 OBESITY, UNSPECIFIED 07/25/2018 [...] MD Ot R06.02 SHORTNESS OF BREATH 08/03/2018 STEVE PARRA, M COLETTE Ot R00.0 TACHYCARDIA, UNSPECIFIED 08/03/2018 STEVE PARRA, M COLETTE Ot R00.1 BRADYCARDIA, UNSPECIFIED 08/03/2018 STEVE PARRA, M COLETTE Ot R00.2 PALPITATIONS 08/03/2018 STEVE PARRA, M COLETTE Ot R06.02 SHORTNESS OF BREATH 08/05/2018 STEVE PARRA, M COLETTE Ot R00.0 TACHYCARDIA, UNSPECIFIED 08/05/2018 STEVE PARRA, M COLETTE Ot R00.1 BRADYCARDIA, UNSPECIFIED 08/05/2018 STEVE PARRA, M COLETTE Ot R00.2 PALPITATIONS 08/05/2018 STEVE PARRA, M COLETTE Ot R06.02 SHORTNESS OF BREATH 08/20/2018 STEVE PARRA, M COLETTE Ot E66.9 OBESITY, UNSPECIFIED 08/20/2018 STEVE PARRA, M COLETTE Ot E78.5 HYPERLIPIDEMIA, UNSPECIFIED 08/20/2018 STEVE PARRA, M COLETTE Ot I10 ESSENTIAL (PRIMARY) HYPERTENSION 08/20/2018 STEVE PARRA, Calvin ALVARENGA Ot R00.0 TACHYCARDIA, UNSPECIFIED 08/20/2018 STEVE PARRA, M COLETTE Ot R00.2 PALPITATIONS 08/20/2018 STEVE PARRA, M COLETTE Ot R06.02 SHORTNESS OF BREATH 08/20/2018 STEVE PARRA, M COLETTE Ot R68.84 JAW PAIN 08/29/2018 STEVE PARRA, M COLETTE Ot E66.9 OBESITY, UNSPECIFIED 08/29/2018 STEVE PARRA, M COLETTE Ot E78.5 HYPERLIPIDEMIA, UNSPECIFIED 08/29/2018 STEVE PARRA, M COLETTE Ot I10 ESSENTIAL (PRIMARY) HYPERTENSION 08/29/2018 STEVE PARRA, M COLETTE Ot R00.0 TACHYCARDIA, UNSPECIFIED 08/29/2018 STEVE PARRA, M COLETTE Ot R00.2 PALPITATIONS 08/29/2018 STEVE PARRA, M COLETTE Ot R06.02 SHORTNESS OF BREATH 08/29/2018 Calvin WILSON MD, Ot R68.84 JAW PAIN 08/29/2018 Calvin WILSON MD, Ot I10 ESSENTIAL (PRIMARY) HYPERTENSION 08/29/2018 Calvin WILSON MD, Ot R07.9 CHEST PAIN, UNSPECIFIED 10/09/2018 Calvin WILSON MD, Ot Z01.818 ENCOUNTER FOR OTHER PREPROCEDURAL EXAMIN 10/09/2018 Calvin WILSON MD, Ot Z01.818 ENCOUNTER FOR OTHER PREPROCEDURAL EXAMIN 10/09/2018 Calvin WILSON MD, Ot Z01.818 ENCOUNTER FOR OTHER PREPROCEDURAL EXAMIN 10/09/2018 Calvin WILSON MD, Ot Z01.818 ENCOUNTER FOR OTHER PREPROCEDURAL EXAMIN Procedures There is no data. Results Test [...] g/dL 3.2-4.5 CALCIUM CORRECTED 9.7 mg/dL 8.5-10.1 Methicillin resistant Staphylococcus aureus (MRSA) screening culture - 10:50 Methicillin resistant Staphylococcus aureus (MRSA) screening culture NEG NRG Encounters ACCT No. Visit Date/Time Discharge Status Pt. Type Provider Facility Loc./Unit Complaint [id number] 02/06/2015 12:16:16 02/06/2015 23:59:59 [facility] Outpatient Kyle Champagne [id number] 02/03/2015 15:25:24 02/03/2015 23:59:59 CLS Outpatient Kyle Champagne [id number] 01/28/2015 16:21:20 01/28/2015 23:59:59 CLS Outpatient Kyle Champagne [id number] 10/09/2018 15:48:00 10/09/2018 16:05:00 DIS Outpatient Calvin WILSON MD [facility] PREOP PSVT ATRIAL FLUTTER [id number] 08/27/2018 10:04:00 08/27/2018 18:03:00 DIS Outpatient Calvin WILSON MD [facility] CATH ABNORMAL STRESS TEST [id number] 08/16/2018 07:42:00 08/16/2018 23:59:59 CLS Outpatient Calvin WILSON MD [facility] CARD HTN,SOB,JAW PAIN [id number] 08/02/2018 13:00:00 08/02/2018 23:59:59 CLS Preadmit Calvin WILSON MD [facility] CARD PALPITATIONS,SOB,SINUS TACHYCARDIA [id number] 07/27/2018 12:56:00 07/29/2018 00:01:00 DIS Outpatient Calvin WILSON MD [facility] CARD PALPITATIONS,SOB,SINUS TACHYCARDIA [id number] 07/06/2018 10:14:00 07/06/2018 23:59:59 CLS Preadmit Calvin WILSON MD [facility] CARD SOB,JAW PAIN, HYPERLIPIDEMA,HTN,SINUS TACHYCARDIA [id number] 07/06/2018 10:12:00 07/06/2018 23:59:59 CLS Preadmit Calvin WILSON MD [facility] CARD HYPERLIPIDEMIA,HTN,SOB, JAW PAIN,OBESITY [id number] 07/06/2018 10:10:00 07/06/2018 23:59:59 CLS Outpatient Calvin WILSON MD [facility] CARD PALPITATIONS,SOB,SINUS TACHYCARDIA [id number] 05/16/2018 14:56:00 05/16/2018 23:59:59 CLS Preadmit AJITH HORNER APRN [facility] REHAB R KNEE PAIN [id number] 05/10/2018 07:14:00 05/10/2018 23:59:59 CLS Outpatient EVENS AJITH Yuan DIAZ [facility] RAD PAIN IN RIGHT KNEE [id number] 2013 10:08:00 2013 23:59:59 CLS Outpatient BRENT BORJAS MD [facility] RAD RT BREAST CALCIFICATIONS [id number] 08/14/2013 07:49:00 08/14/2013 23:59:59 CLS Outpatient LOGAN MARQUEZ DO [facility] RAD ABNORMAL MAMMO [id number] 07/23/2013 15:40:00 07/23/2013 23:59:59 CLS Outpatient LOGAN MARQUEZ DO [facility] RAD SCREENING [id number] 10/15/2018 11:00:00 Calvin Hensley MD [facility] CATH PSVT ATRIAL FLUTTER
[2018-10-15] MEDS ORDERED: LIDOCAINE 1% INJ 20 ML 20 ML VIAL ONE ×2 (09:12→12:51)
[2018-10-15] MEDS ORDERED: NS IV 1000 ML 1,000 ML ONE (09:12)
[2018-10-15] MEDS ORDERED: HEParin (CATH LAB) 1,000 ML IV ONE (09:12)
[2018-10-15] MEDS ORDERED: ISOPROTERENOL 0.2 MG/100 ML D5W IV ONE ×2 (09:45→10:00)
[2018-10-15] MEDS ORDERED: FAMOTIDINE 20MG/2ML IV (PEPCID) ONE (09:55)
[2018-10-15] MEDS ORDERED: FLU QUADRIvalent (5+ YOA) 2018-2019 (AFLURIA) 0.5 ML IM ONE (10:00)
[2018-10-15] MEDS ORDERED: FAMOTIDINE 20MG/2ML IV (PEPCID) IVP ONE (10:00)
[2018-10-15 10:06] LABS: HEMOGLOBIN 15.4 G/DL (11.5-16.0); MEAN PLATELET VOLUME 10.7 FL (7.4-10.4); RED BLOOD COUNT 4.99 10^6/uL (4.35-5.85); RED CELL DISTRIBUTION WIDTH 13.9 % (10.0-14.5)
[2018-10-15] MEDS ORDERED: CALC300T4 PO (10:13)
[2018-10-15 10:20] LABS: PROTHROMBIN TIME PATIENT 13.1 SEC (12.2-14.7)
[2018-10-15 10:21] LABS: ALANINE AMINOTRANSFERASE 26 U/L (0-55); ALBUMIN 4.5 GM/DL (3.2-4.5); ALKALINE PHOSPHATASE 63 U/L (40-136); BILIRUBIN,TOTAL 0.5 MG/DL (0.1-1.0); BUN/CREATININE RATIO 14; CALCIUM 9.7 MG/DL (8.5-10.1); CARBON DIOXIDE 24 MMOL/L (21-32); CHLORIDE 106 MMOL/L (98-107); GFR ESTIMATED > 60; GLUCOSE 89 MG/DL (70-105); POTASSIUM 3.8 MMOL/L (3.6-5.0); SODIUM 142 MMOL/L (135-145); TOTAL PROTEIN 7.6 GM/DL (6.4-8.2)
[2018-10-15] MEDS ORDERED: proPOfol 200 MG/20 ML (DIPRIVAN) VIAL IV ONE (12:51)
[2018-10-15] MEDS ORDERED: MIDAZOLAM 2 MG/2 ML (VERSED) VIAL ONE (12:52)
[2018-10-15] MEDS ORDERED: fentaNYL INJECTION 100 MCG/2 ML AMP ONE ×2 (12:52→15:28)
[2018-10-15] MEDS ORDERED: SEVOFLURANE (ULTANE) 15 ML INHAL SOLN ONE (12:52)
[2018-10-15] MEDS ORDERED: ONDANSETRON 4 MG/2 ML (SDV) Z0FRAN ONE ×2 (13:07→16:20)
[2018-10-15] MEDS ORDERED: DEXAMETHASONE 10 MG/ML (DECADRON) 1 ML VIAL ONE (13:31)
--- NOTE | 2018-10-15 15:58 | Cardiac Procedure Note-CS/ASA ---
Pre-Procedure Note Pre-Op Procedure Note H&P Reviewed The H&P was reviewed, patient examined and no changes noted. Date H&P Reviewed: Oct 15, 2018 Time H&P Reviewed: 12:30 Conscious Sedation Pre-Proced Time 12:30 ASA Score 3 For ASA 3 and 4: Consider anesthesia and medical clearance. Also, for patients with a history of failed moderate sedation consider anesthesia. Airway Lungs Heart ASA score ASA 1: a normal healthy patient ASA 2: a patient with a mild systemic disease (mid diabetes, controlled hypertension, obesity ASA 3: a patient with a severe systemic disease that limits activity (angina , COPD, prior Myocardial infarction) ASA 4: a patient with an incapacitating disease that is a constant threat to life (CHF, renal failure) ASA 5: a moribund patient not expected to survive 24 hrs. (ruptured aneurysm) ASA 6: a declared brain patient whose organs are being harvested. For emergent operations, add the letter E after the classification Mallampati Classification Grade 1 Sedation Plan Analgesia, Amnesia, Plan communicated to team members, Discussed options with patient/fam, Discussed risks with patient/fam The patient is an appropriate candidate to undergo the planned procedure, sedation, and anesthesia. The patient immediately re-assessed prior to indication. Calvin WILSON MD Oct 15, 2018 15:58
[2018-10-15] MEDS ORDERED: PATIENT MAY USE OWN MEDS, ALL PO SCH (16:00)
--- NOTE | 2018-10-15 16:07 | Electrophysiology Procedure ---
EP Procedure DATE OF SERVICE:10/15/18 CARDIAC DROP CREW LABORER: Johana Powell MD, [facility], [facility]. INDICATION: PSVT. PREOPERATIVE DIAGNOSIS: PSVT. POSTOPERATIVE DIAGNOSES: 1. Parahisian focal atrial tachycardia, successful ablation. 2. AVNRT, successful ablation HISTORY: This is a 58-year-old lady with frequent palpitations. An event monitor showed evidence of PSVT, however we could not differentiate between atrial tachycardia or AVNRT. Initiation was with a PAC. The patient is planned for comprehensive EP study and ablation. PROCEDURE PERFORMED: 1. Comprehensive EP study with induction. 2. Fluoroscopy. 3. CS pacing. 4. Drug infusion. 5.Ablation of AVNRT. 6. Comprehensive 3D mapping with the carto system. 7. Ablation of focal atrial tachycardia. COMPLICATION: None. ESTIMATED BLOOD LOSS: 10 mL. CONTRAST USED: None. FLUOROSCOPY TIME: 6.4 minutes. FLUOROSCOPY DOSE: 142 MGY. SPECIMENS: None. ANESTHESIA: Done by our anesthesia colleagues. ANTICOAGULATION: None. PROCEDURE IN DETAIL: After informed consent was taken, the patient was brought to the EP lab. Anesthesia was provided by our anesthesia colleagues. The patient was draped and prepped in the usual sterile fashion. The patient presented to the EP lab in sinus rhythm. Access was gained in the right femoral vein with a 6-[place] and an 8-[place] sheath. Left access in left femoral vein was gained with 5-[place] and 6-[place] sheath respectively. High right atrial catheter was an Janelle catheter, right ventricular catheter was placed, his catheter and the CS catheter were also placed. A comprehensive EP study was done including a CS pacing. During Isuprel infusion at 4 g, atrial tachycardia was induced with cycle length of 348 ms. Occasionally with 2-1 AV block. Mild cycle length irregularity was noted. Termination was always with a V. overdrive pacing could not be done due to termination. Tachycardia initiated with a PAC with concentric activation with earliest activation on the proximal his catheter. Ventricular pacing also showed concentric atrial activation ruling out left lateral pathway. Long septal VA time during tachycardia. Comprehensive 3-D mapping was done with the carto system. Earliest activation was in the septal area very close to the his. Very careful mapping was done and the earliest focus was mapped 13 mm away inferior to the bundle of His. Ablation was done resulting in termination of tachycardia and noninducibility even on Isuprel 8 g. Previously the tachycardia was very easily inducible on atrial pacing with low dose Isuprel infusion. No bundle of His damage was noted and 1:1 AV conduction was confirmed consistently. Dual AV marquise physiology was demonstrated with significant jump. Triple atrial echoes were noted with short septal VA time suggesting typical AVNRT. Sustained AVNRT was not induced on Isuprel 4 mcg/min. A 3D electroanatomic mapping was donewith the carto system. Slow pathway was identified with low voltage in and around the proximal segment of the CS os. Ablation was done with significant junctional ectopy. AV conduction was normal. Post-ablation there was no dual AV marquise physiology with no atrial echoes even on high dose Isuprel at 8 mcg/min. The patienttolerated the procedurewell and did not have any complication. The patientleft the lab in sinus rhythm. Total ablation time was 239 seconds. MEASUREMENTS/EP STUDY: AH Interval 178 ms, HV Interval 42 ms, AA interval 824 ms, IL interval 147 ms, QRS duration 59 ms, QT interval 448 ms, R-R interval 831 ms, AV Wenckebach 400 ms, retrograde Uaqsmasvvh514 ms, AV node BPU101/350 Ventricular ZQK145/380 ms. PLAN: The patient will be observed overnight and will be discharged home tomorrow with precise followup instructions. Johana Powell MD, [facility], [facility] Cardiac Electrophysiology Calvin POWELL MD Oct 15, 2018 16:07
[2018-10-15] MEDS ORDERED: morphine INJ 10 MG/ML 1ML (SYR OR VIAL) ONE (16:20)
[2018-10-15] MEDS ORDERED: morphine INJ 10 MG/ML 1ML (SYR OR VIAL) IVP ONE (17:00)
[2018-10-15] MEDS ORDERED: ONDANSETRON 4 MG/2 ML (SDV) Z0FRAN IVP PRN (17:00)
[2018-10-15] MEDS ORDERED: NON-FORMULARY MEDICATION 1 EA EA (Cetirizine HCl (Zyrtec) 10 MG) PO PRN (17:15)
[2018-10-15] MEDS ORDERED: NON-FORMULARY MEDICATION 1 EA EA (L.acidoph & Paracasei,B.lactis (Probiotic) 1 EACH) PO PRN (17:15)
[2018-10-15] MEDS ORDERED: NON-FORMULARY MEDICATION 1 EA EA (Calcium Carbonate (Tums) 300 MG) PO SCH (17:15)
[2018-10-15] MEDS ORDERED: LORATADINE (CLARITIN) 10 MG TAB PO PRN (18:15)
[2018-10-15] MEDS ORDERED: CALCIUM CARBONATE 500 MG (TUMS) TAB.CHEW PO PRN (18:15)
[2018-10-15] MEDS ORDERED: LACTOBACILLUS ACIDOPHILUS (PROBIOTIC) CAPSULE PO PRN (18:15)
[2018-10-15] MEDS ORDERED: ONDANSETRON 4 MG/2 ML (SDV) Z0FRAN IVP NR (18:30)
[2018-10-15] MEDS: NS IV 1000 ML 1,000 ML IV SCH (18:41)
[2018-10-16] VITALS: BP 108/67
[2018-10-16] MEDS: NS IV 1000 ML 1,000 ML IV SCH (02:21)
[2018-10-16 03:45] LABS: HEMOGLOBIN 13.2 G/DL (11.5-16.0); MEAN PLATELET VOLUME 10.6 FL (7.4-10.4); RED BLOOD COUNT 4.22 10^6/uL (4.35-5.85); RED CELL DISTRIBUTION WIDTH 13.7 % (10.0-14.5); WHITE BLOOD COUNT 13.1 10^3/uL (4.3-11.0)
[2018-10-16 04:00] VITALS: BP 113/71
[2018-10-16 04:07] LABS: BUN/CREATININE RATIO 17; CALCIUM 8.6 MG/DL (8.5-10.1); CARBON DIOXIDE 18 MMOL/L (21-32); CHLORIDE 110 MMOL/L (98-107); CREATININE SERUM 0.86 MG/DL (0.60-1.30); GFR ESTIMATED > 60; GLUCOSE 153 MG/DL (70-105); POTASSIUM 4.3 MMOL/L (3.6-5.0); SODIUM 140 MMOL/L (135-145)
[2018-10-16] MEDS ORDERED: LEVOTHYROXINE 25 MCG (LEVOTHROID) TAB PO SCH (06:30)
[2018-10-16 08:01] VITALS: BP 126/79
[2018-10-16] MEDS ORDERED: amLODIPine 5 MG (NORVASC) TAB PO SCH (09:00)
[2018-10-16] MEDS ORDERED: NON-FORMULARY MEDICATION 1 EA EA (Amlodipine Besylate 5 MG) PO SCH (09:00)
--- NOTE | 2018-10-16 09:19 | Cardiology Discharge Summary ---
Diagnosis/Chief Complaint Date of Admission 10/15/2018 Date of Discharge 10/16/2018 Admission Diagnosis PSVT Final/Discharge Diagnosis Focal atrial tachycardia, AVNRT Chief Complaint/HPI Chief Complaint/HPI This is a 58-year-old lady with frequent palpitations. An event monitor showed evidence of PSVT, however we could not differentiate between atrial tachycardia or AVNRT. Initiation was with a PAC. The patient is planned for comprehensive EP study and ablation. Discharge Summary Procedures Comprehensive EP study with 3-D mapping. Parahisian focal atrial tachycardia, successful ablation in the septal wall just inferior to the bundle of His. AVNRT, slow pathway ablation. Discharge Physical Examination Normal cardiovascular and respiratory examination. Hospital Course Unremarkable. Pending Labs Discussion & Recommendations Discussion Discharge instructions discussed at length with the patient and family. The procedure was discussed at length with the patient and family. Discharge took over 30 minutes to complete. Follow up appt.: Dr. Powell in 3-4 weeks. Dicharge Diet: Regular Diet Activity as Tolerated: Yes Home Medications Reviewed patient Home Medication Reconciliation performed by pharmacy medication reconciliations quality technician and/or nursing. Patients Allergies have been reviewed. Discharge Home Medications: Reviewed and agree with Discharge Medication list on patient's Discharge Instruction sheet Condition at discharge Stable. Instructions to patient/family Discharge instructions given to the patient and family. Calvin POWELL MD Oct 16, 2018 09:19
--- NOTE | 2018-10-16 10:34 | Anesthesia-General Post-Op ---
General Patient Condition Mental Status/LOC: Same as Preop Cardiovascular: Satisfactory Nausea/Vomiting: Absent Respiratory: Satisfactory Pain: Controlled Complications: Absent Post Op Complications Complications None Follow Up Care/Instructions Patient Instructions None needed. Anesthesia/Patient Condition Patient Condition Patient is doing well, no complaints, stable vital signs, no apparent adverse anesthesia problems. No complications reported per nursing. CARLOS LIU CRNA Oct 16, 2018 10:34
--- NOTE | 2018-10-16 11:07 | Discharge Inst-Post CATH ---
Discharge Inst-CATH Post Cardiac Cath D/C Inst Follow Up/Plan Follow up with Dr Powell in one month. CARDIAC CATH DISCHARGE INSTRUCTIONS *Hold Metformin for 48 hours post heart cath. ACTIVITY * Go Home directly and rest. * Limit activity of the leg (or wrist if it was used) for 7 days including aerobics, swimming, jogging, bicycling, etc. * Restrict stair-climbing for 7 days if possible, if not, climb up with your non -cath leg, then bring together on the same step. * Avoid lifting, pushing, pulling or excessive movement of the affected extremity for 7 days. * Customary sexual activity may be resumed after 2 days-use caution not to use a position that strains or causes pain to the affected extremity. * No driving for 24 hours. * NO SMOKING. * Avoid straining for bowel movements for 7 days. * Gentle walking on level ground is allowed. * Returning to work will depend on the type of procedure and the results. Your doctor will discuss this with you. CALL YOUR DOCTOR FOR ANY OF THE FOLLOWING: *If bleeding from the puncture site occurs- Apply gentle pressure to site with clean cloth and call your doctor or EMS. * If a knot or lump forms under the skin, increases in size, or causes pain. * If bruising appears to be worsening or moving further down your leg instead of disappearing. * Temperature above 101 F. CARE OF YOUR GROIN INCISION; * Bruising or purple discoloration of the skin near the puncture site is common. * You may shower only, no bathtub bathing for 5 days. Be careful to avoid slipping as your leg may feel stiff. * If a closure device was used on your femoral artery, please see the attached guide regarding care of the device and your leg. * Leave the dressing on, until removed by office staff. CARE OF YOUR WRIST INCISION; * Bruising or purple discoloration of the skin near the puncture site is common. * You may shower. * DO NOT submerge wrist. * Leave dressing on, until removed by office staff.. Calvin POWELL MD Oct 16, 2018 11:07
[2018-10-16 11:50] VITALS: BP 126/79
== END 2018-10-16 11:50 | disposition home or self-care (01) ==
LOC: CATH 09:03 → ICU 17:35 → CATH 10-16 11:50
PROVIDERS: ATTEND Internal Medicine Interventional Cardiology
DX: I47.1 Supraventricular tachycardia (principal); I25.10 Atherosclerotic heart disease of native coronary artery without angina pectoris; I10 Essential (primary) hypertension; E78.5 Hyperlipidemia, unspecified; K21.9 Gastro-esophageal reflux disease without esophagitis; K44.9 Diaphragmatic hernia without obstruction or gangrene; E66.9 Obesity, unspecified; Z68.35 Body mass index [BMI] 35.0-35.9, adult; Z79.82 Long term (current) use of aspirin; Z79.899 Other long term (current) drug therapy
CPT/HCPCS: 36415; 80048; 80053; 85027; 85610; 85730; 87081; 93005; 93613; 93621; 93623; 93653; 93655

== ENCOUNTER → 2018-10-24 | Outpatient (CLI) | payer BC ==
[~2018-10-24] MED LIST changes: +CALC300T4 PO
--- NOTE | 2018-10-25 12:37 | Diagnostic Imaging Report ---
INDICATION: Routine screening. COMPARISON is made with prior left mammogram from 07/01/2016 and 12/16/2015 as well as bilateral mammogram from 11/16/2015 and 07/23/2013. TECHNIQUE: 2-D and 3-D bilateral screening mammography was performed with CAD. FINDINGS: Both breasts are heterogeneously dense, limiting the sensitivity of mammography. Right breast demonstrates biopsy clip. Parenchymal pattern appears to be stable. There is a tiny circumscribed nodule in the medial posterior right breast consistent with benign etiology. A left breast MLO view does show 2 densities. One density is superiorly located anterior to mid depth. A second density is at the nipple line posteriorly located. These appear more prominent than prior studies and additional views are recommended. No definite correlates are identified on the CC view. Benign-appearing calcifications are noted. Axillae are unremarkable. IMPRESSION: BI-RADS 0. Left breast densities. Additional views are recommended for further evaluation. ACR BI-RADS Category 0: Incomplete. (Needs additional imaging evaluation). Result letter will be mailed to the patient. Note: At least 10% of breast cancer is not imaged by mammography. Dictated by: Dictated on workstation # [id number]
== END ==
LOC: RAD 11:18
PROVIDERS: ATTEND Nurse Practitioner Family
DX: Z12.31 Encounter for screening mammogram for malignant neoplasm of breast (principal)
CPT/HCPCS: 77067

== ENCOUNTER → 2018-11-15 | Outpatient (CLI) | payer BC ==
--- NOTE | 2018-11-15 21:28 | Diagnostic Imaging Report ---
INDICATION: Left breast densities. This study was performed for further evaluation. COMPARISON: Correlation is made with diagnostic mammogram from earlier the same day and screening mammogram from 10/24/2018. EXAMINATION: Sonographic interrogation of the upper inner left breast was performed. FINDINGS: There is a tiny circumscribed hypoechoic mass at the 11 o'clock location, 4 cm from the nipple, measuring approximately 3 mm in size. No internal vascularity is seen. A second mass is seen at the 10 o'clock location, approximately 6 cm from the nipple, measuring 6 mm in size. No internal vascularity is seen. Both of these have the appearance of a small cyst. These likely account for the densities noted mammographically. No suspicious abnormalities are seen. IMPRESSION: Probable tiny cyst at the 10 o'clock and 11 o'clock locations of the left breast, likely accounting for the mammographic densities. No suspicious abnormality is seen. Patient may return to routine annual screening mammography. ACR BI-RADS Category 2: Benign findings. Result letter will be mailed to the patient. Note: At least 10% of breast cancer is not imaged by mammography. Dictated by: Dictated on workstation # [id number]
--- NOTE | 2018-11-16 10:59 | Diagnostic Imaging Report ---
INDICATION: Left breast densities. Patient presents for additional views. COMPARISON: 10/24/2018. FINDINGS: Unilateral left 2D and 3D diagnostic mammography was performed including a repeat MLO view, ML view, and spot compression MLO view as well as CAD. FINDINGS: The nodular densities noted on the screening study appear to be less prominent today. There is some minimal residual nodularity present. No suspicious calcifications are seen. The left axilla is unremarkable. IMPRESSION: There is some mild residual nodularity with additional views; however, this is much less prominent when compared with the recent screening study. Even so, sonographic interrogation is recommended and will be performed today. ACR BI-RADS Category 0: Incomplete. (Needs additional imaging evaluation). Result letter will be mailed to the patient. Note: At least 10% of breast cancer is not imaged by mammography. ' Dictated by: Dictated on workstation # [id number]
== END ==
LOC: RAD 08:40
PROVIDERS: ATTEND Nurse Practitioner Family
DX: R92.2 Inconclusive mammogram (principal)
CPT/HCPCS: 76642

== ENCOUNTER 2019-05-10 09:45 | Outpatient (RCR) | payer BC ==
[~2019-05-10 09:45] MED LIST changes: -AMLO5TAB7 PO; +AMLO5TAB9 PO
== END 2019-08-08 | disposition home or self-care (01) ==
LOC: CARD 09:45
PROVIDERS: ATTEND Internal Medicine Interventional Cardiology
DX: I47.1 Supraventricular tachycardia (principal); I25.10 Atherosclerotic heart disease of native coronary artery without angina pectoris; E78.5 Hyperlipidemia, unspecified; I10 Essential (primary) hypertension; R00.2 Palpitations

== ENCOUNTER → 2019-11-04 | Outpatient (CLI) | payer BC | LOC: CARD 08:59 | PROVIDERS: ATTEND Internal Medicine Interventional Cardiology | DX: I25.10 Atherosclerotic heart disease of native coronary artery without angina pectoris (principal); I47.1 Supraventricular tachycardia; I49.3 Ventricular premature depolarization; I10 Essential (primary) hypertension; E78.5 Hyperlipidemia, unspecified; I08.0 Rheumatic disorders of both mitral and aortic valves | CPT/HCPCS: 93306 ==

== ENCOUNTER → 2019-11-25 | Outpatient (CLI) | payer BC ==
[~2019-11-25] MED LIST changes: -METO-387 PO; +MTP25TSR PO
--- NOTE | 2019-11-25 10:01 | Diagnostic Imaging Report ---
INDICATION: Routine screening. Comparison is made with prior mammogram from 10/24/2018 and 11/16/2015. 2-D and 3-D bilateral screening mammography was performed with CAD. Both breasts are heterogeneously dense, limiting the sensitivity of mammography. Biopsy marker clip medial right breast is again noted. The parenchymal pattern is stable. No dominant mass or malignant-appearing microcalcifications are seen. Axillae are unremarkable. IMPRESSION: BI-RADS Category 2 No mammographic features suspicious for malignancy are identified. Dictated by: Dictated on workstation # [id number]
== END ==
LOC: RAD 07:48
PROVIDERS: ATTEND Family Medicine
DX: Z12.31 Encounter for screening mammogram for malignant neoplasm of breast (principal)
CPT/HCPCS: 77067

== ENCOUNTER → 2020-10-20 | Outpatient (CLI) | payer BC ==
[~2020-10-20] VITALS: Ht 160 cm; Wt 97.0 kg
[~2020-10-20] MED LIST changes: +AMLO-250 PO; -AMLO5TAB9 PO; +REGADENOSON 0.4 MG/5 ML SYR (LEXISCAN) IV ONE
[2020-10-20] MEDS: CATHETER FLUSH 10 ML SYR IV PRN ×2 (11:12→12:52)
[2020-10-20 12:45] VITALS: BP 122/85
--- NOTE | 2020-10-21 10:42 | STRESS TEST ---
DATE OF SERVICE: 10/20/2020 RESTING AND POST REGADENOSON TECHNETIUM-99M TETROFOSMIN SPECT CT IMAGING ORDERING PHYSICIAN: Dr. Ware. PRIMARY PHYSICIAN: Dr. Ledezma. CLINICAL DIAGNOSIS: Chest pain. Baseline images were carried out after injection of 10.97 mCi of technetium-99m Tetrofosmin. This was followed by 0.4 mg of Regadenoson and 29.6 mCi of technetium-99m Tetrofosmin for stress imaging. The electrocardiogram showed sinus rhythm at baseline. It did not change significantly with the Regadenoson infusion. The patient tolerated the procedure well. Review of images at rest and following stress does not indicate any distinct perfusion defect consistent with significant myocardial ischemia or infarction. Gated images show normal to hyperdynamic left ventricular systolic function with a calculated ejection fraction of 80%. Left ventricular end diastolic volume is 39 mL. TID is absent (1.11). CONCLUSIONS: 1. No evidence of any significant myocardial ischemia or infarction on this study. 2. Normal regional wall motion. 3. Normal to hyperdynamic left ventricular systolic function with a calculated ejection fraction of 80%. Job ID: [id number] DocumentID: [id number] Dictated Date: 10/21/2020 09:56:07 Boiler Repairman Date: 10/21/2020 10:41:58 Dictated By: DELFINA WARE MD, MA, FACP, FACC,
== END ==
LOC: CARD 11:00
PROVIDERS: ATTEND Internal Medicine Cardiovascular Disease
DX: R07.89 Other chest pain (principal)
CPT/HCPCS: 78452; 93017; 93306; A9502

== ENCOUNTER → 2021-01-25 | Outpatient (CLI) | payer BC ==
[~2021-01-25] MED LIST changes: -REGADENOSON 0.4 MG/5 ML SYR (LEXISCAN) IV ONE
--- NOTE | 2021-01-26 10:43 | Diagnostic Imaging Report ---
EXAMINATION: Digital mammogram bilateral screening with CAD. INDICATION: Screening. COMPARISON: This study was compared to the prior exams of 11/25/2019, 10/24/2018, 07/01/2016, 12/16/2015, and 11/16/2015. PERSONAL HISTORY: At this time, there are no current complaints. FINDINGS: The fibroglandular tissue in both breasts is heterogeneously dense. This does limit the sensitivity of this exam. On the MLO view of the left breast deep in the breast approximately 8 cm from nipple, there is a 4 mm rounded asymmetry just above the nipple line.. This finding was not clearly evident on the previous exams nor can it be identified with certainty on the craniocaudad view of this study. This may merely be secondary to superimposition; however, the tomographic images do suggest that there is a small nodule in this area (slice 62/93 slab 1). I would recommend that a compression view of this area be obtained in the MLO projection as well as a true lateral view for further study. Ultrasound should also be performed. The right breast is essentially no different. IMPRESSION: Additional mammographic views and ultrasound of the left breast would be recommended for further evaluation. ACR BI-RADS Category 0: Incomplete. (Needs additional imaging evaluation). Result letter will be mailed to the patient. Note: At least 10% of breast cancer is not imaged by mammography. Dictated by: Dictated on workstation # [id number]
== END ==
LOC: RAD 10:20
PROVIDERS: ATTEND Family Medicine
DX: Z12.31 Encounter for screening mammogram for malignant neoplasm of breast (principal)
CPT/HCPCS: 77063; 77067

== ENCOUNTER → 2021-02-04 | Outpatient (CLI) | payer BC ==
--- NOTE | 2021-02-04 13:24 | Diagnostic Imaging Report ---
INDICATION: Left breast density. CORRELATION is made with diagnostic mammogram earlier same day. Sonography interrogation of upper inner left breast was performed. No abnormality is identified. There is a cyst in the retroareolar 9:00 location measuring approximately 5 mm x 3 mm in size. No internal vascularity is seen. There is posterior acoustic enhancement present. Tiny cyst at the 12:00 location is also noted. IMPRESSION: No abnormalities identified in the upper inner left breast to account for the mammographic density. There are 2 simple appearing cysts at the 9:00 and 12:00 locations. Patient may return to routine annual screening mammography. BI-RADS Category 2 ACR BI-RADS Category 2: Benign findings. Result letter will be mailed to the patient. Note: At least 10% of breast cancer is not imaged by mammography. Dictated by: Dictated on workstation # [id number]
--- NOTE | 2021-02-04 15:58 | Diagnostic Imaging Report ---
INDICATION: Left breast density. Patient presents for additional views. CORRELATION is made with prior mammogram 01/25/2021. Unilateral left 2-D and 3-D diagnostic mammography was performed with CAD. This included spot compression ML and conventional 90 degree lateral views. This is a persistent slightly nodular density in the upper and inner aspect of the left breast approximately 8 cm from the nipple. Further evaluation of this area with cerebral ultrasound is recommended. IMPRESSION: BI-RADS 0 Persistent nodular density upper inner left breast 8 cm from the nipple. Further evaluation with ultrasound is recommended and will be performed today. ACR BI-RADS Category 0: Incomplete. (Needs additional imaging evaluation). Result letter will be mailed to the patient. Note: At least 10% of breast cancer is not imaged by mammography. Dictated by: Dictated on workstation # [id number]
== END ==
LOC: RAD 12:30
PROVIDERS: ATTEND Family Medicine
DX: R92.2 Inconclusive mammogram (principal)
CPT/HCPCS: 76642; 77065; G0279

== ENCOUNTER 2021-07-20 07:52 | Day surgery (SDC) | payer BC ==
[2021-07-20] VITALS (8 sets, daily range): BP systolic 109–149; BP diastolic 67–93
[~2021-07-20] VITALS: Ht 161 cm; Wt 98.0 kg
[2021-07-20] MEDS ORDERED: LIDOCAINE 1% INJ 20 ML 20 ML VIAL ONE (07:53)
[2021-07-20] MEDS ORDERED: NS IV 1000 ML 1,000 ML ONE (07:54)
[2021-07-20] MEDS ORDERED: HEParin (CATH LAB) 2,000 ML IV ONE (07:54)
[2021-07-20] MEDS ORDERED: NS IV 1000 ML 1,000 ML IV SCH ×2 (08:00→10:30)
[2021-07-20 08:15] LABS: HEMATOCRIT 48 % (35-52); HEMOGLOBIN 15.6 g/dL (11.5-16.0); MEAN CORPUSCULAR HEMOGLOBIN 32 pg (25-34); MEAN CORPUSCULAR HGB CONC 33 g/dL (32-36); MEAN CORPUSCULAR VOLUME 96 fL (80-99); MEAN PLATELET VOLUME 10.5 fL (9.0-12.2); PLATELET COUNT 307 10^3/uL (130-400); WHITE BLOOD COUNT 7.8 10^3/uL (4.3-11.0)
[2021-07-20 08:28] LABS: INR 0.9 (0.8-1.4); PROTHROMBIN TIME PATIENT 12.5 SEC (12.2-14.7)
[2021-07-20] MEDS ORDERED: OMEP40CA6 PO (08:31)
[2021-07-20] MEDS ORDERED: ASPI-1238 PO (08:31)
[2021-07-20] MEDS ORDERED: LORA10TA7 PO (08:31)
[2021-07-20] MEDS ORDERED: GARL1000 PO (08:31)
[2021-07-20] MEDS ORDERED: METO50TA7 PO (08:31)
[2021-07-20] MEDS ORDERED: MULT-1136 PO (08:31)
[2021-07-20 08:36] LABS: ALBUMIN 4.2 GM/DL (3.2-4.5); BILIRUBIN,TOTAL 0.5 MG/DL (0.1-1.0); CALCIUM 9.4 MG/DL (8.5-10.1); CREATININE SERUM 0.91 MG/DL (0.60-1.30); POTASSIUM 3.6 MMOL/L (3.6-5.0); TOTAL PROTEIN 7.5 GM/DL (6.4-8.2)
[2021-07-20] MEDS ORDERED: MIDAZOLAM 5 MG/5 ML (VERSED) VIAL ONE (09:48)
[2021-07-20] MEDS ORDERED: fentaNYL INJ 100 MCG/2 ML AMP ONE (09:48)
--- NOTE | 2021-07-20 10:16 | Cardiac Procedure Note-CS/ASA ---
Pre-Procedure Note Pre-Op Procedure Note H&P Reviewed The H&P was reviewed, patient examined and no changes noted. Date H&P Reviewed: Jul 20, 2021 Time H&P Reviewed: 09:50 Conscious Sedation Pre-Proced Time 09:50 ASA Score 3 For ASA 3 and 4: Consider anesthesia and medical clearance. Also, for patients with a history of failed moderate sedation consider anesthesia. Airway Lungs Heart ASA score ASA 1: a normal healthy patient ASA 2: a patient with a mild systemic disease (mid diabetes, controlled hypertension, obesity ASA 3: a patient with a severe systemic disease that limits activity (angina, COPD, prior Myocardial infarction) ASA 4: a patient with an incapacitating disease that is a constant threat to life (CHF, renal failure) ASA 5: a moribund patient not expected to survive 24 hrs. (ruptured aneurysm) ASA 6: a declared brain- patient whose organs are being harvested. For emergent operations, add the letter E after the classification Mallampati Classification Grade 2 Sedation Plan Analgesia, Amnesia, Plan communicated to team members, Discussed options with patient/fam, Discussed risks with patient/fam The patient is an appropriate candidate to undergo the planned procedure, sedation, and anesthesia. The patient immediately re-assessed prior to indication. DELFINA KILLIAN MD FACP FAC CCDS Jul 20, 2021 10:16
--- NOTE | 2021-07-20 10:20 | Discharge Inst-Cardiology ---
Discharge Inst-Cardiac Discharge Medications Continued Medications: Amlodipine Besylate (Amlodipine Besylate) 5 Mg Tablet 5 MG PO DAILY, TAB Aspirin (Aspirin EC) 81 Mg Tablet.dr 81 MG PO DAILY, TAB Calcium Carbonate (Tums) 300 Mg Tab.chew 300-600 MG PO Q8H PRN for INDIGESTION, TAB Garlic (Garlic Oil) 1,000 Mg Capsule 1000 MG PO DAILY, CAP Levothyroxine Sodium (Levothyroxine Sodium) 25 Mcg Tablet 25 MCG PO DAILY, TAB Loratadine (Loratadine) 10 Mg Tablet 10 MG PO DAILY, TAB Metoprolol Succinate (Metoprolol Succinate) 50 Mg Tab.er.24h 50 MG PO DAILY, TAB Multivitamin (Multivitamin) 1 Each Tablet 1 EACH PO DAILY, TAB Omeprazole (Omeprazole) 40 Mg Capsule.dr 40 MG PO DAILY, DELFINA DIAMOND MD FACP FAC CCDS Jul 20, 2021 10:19
--- NOTE | 2021-07-20 10:21 | Discharge Inst-Post CATH ---
Discharge Inst-CATH/EP Post Cardiac Cath/EP D/C Inst Follow Up/Plan F/u with Dr Ware in 2 weeks ACTIVITY * Go Home directly and rest. * Limit activity of the leg (or wrist if it was used) for 7 days including aerobics, swimming, jogging, bicycling, etc. * Restrict stair-climbing for 7 days if possible, if not, climb up with your n on-cath leg, then bring together on the same step. * Avoid lifting, pushing, pulling or excessive movement of the affected ex tremity for 7 days. * Customary sexual activity may be resumed after 2 days-use caution not to use a position that strains or causes pain to the affected extremity. * No driving for 24 hours. * NO SMOKING. * Avoid straining for bowel movements for 7 days. * Gentle walking on level ground is allowed. * Returning to work will depend on the type of procedure and the results. Your doctor will discuss this with you. CALL YOUR DOCTOR FOR ANY OF THE FOLLOWING: *If bleeding from the puncture site occurs- Apply gentle pressure to site with clean cloth and call your doctor or EMS. * If a knot or lump forms under the skin, increases in size, or causes pain. * If bruising appears to be worsening or moving further down your leg instead of disappearing. * Temperature above 101 F. CARE OF YOUR GROIN INCISION; * Bruising or purple discoloration of the skin near the puncture site is common. * You may shower only, no bathtub bathing for 5 days. Be careful to avoid slipping as your leg may feel stiff. * If a closure device was used on your femoral artery, please see the attached guide regarding care of the device and your leg. * Leave dressing on FOR 24 hours. CARE OF YOUR WRIST INCISION; * Bruising or purple discoloration of the skin near the puncture site is common. * You may shower. * DO NOT submerge wrist. * Leave dressing on FOR 24 hours. DELFINA WARE MD FACP FAC CCDS Jul 20, 2021 10:21
[2021-07-20] MEDS ORDERED: PATIENT MAY USE OWN MEDS, ALL PO SCH (10:30)
--- NOTE | 2021-07-20 13:11 | CARDIAC CATHETERIZATION ---
DATE OF SERVICE: 07/20/2021 CARDIAC CATHETERIZATION REPORT INDICATION FOR PROCEDURE: The patient is a 60-year-old lady, who has multiple coronary artery disease risk factors and who has had symptoms of chest discomfort and has been very concerned that this is of coronary origin. Cardiac catheterization was carried out today after having obtained an informed consent. DESCRIPTION OF PROCEDURE: She was brought to the cardiac catheterization laboratory in a fasting state. Right groin was prepared and draped in the usual sterile fashion. Lidocaine 1% was infused to local anesthesia. Modified Seldinger technique was used to advance a 5-Surinamese sheath in the right femoral artery, a 5-Surinamese JR4 catheter was used for left coronary angiography, 5-Surinamese JR4 catheter was used for right coronary angiography, 5-Surinamese pigtail catheter was used for left heart catheterization and left ventricular angiography. Angiography of the right femoral artery was carried out through the sheath and Mynx was used to achieve hemostasis following sheath removal. She tolerated the procedure well. HEMODYNAMICS: Left ventricular end-diastolic pressure following coronary angiography was 20 mmHg. There was no significant pressure gradient across the aortic valve. LEFT VENTRICULAR ANGIOGRAPHY: Left ventricular angiography was carried out in the right anterior oblique projection. Global left ventricular systolic function was normal. No regional wall motion abnormality is seen. Left ventricular ejection fraction is approximately 60%. CORONARY ANGIOGRAPHY: Left main coronary artery, left anterior descending artery, left circumflex artery, and right coronary artery do not exhibit any angiographically significant disease. Right coronary artery is dominant. CONCLUSIONS: 1. No angiographically significant coronary artery disease. 2. Normal global left ventricular systolic function with ejection fraction of approximately 60%. 3. Left ventricular end-diastolic pressure was 20 mmHg. DISCUSSION AND RECOMMENDATIONS: Based on the results of the study, it appears appropriate to continue a conservative approach. Risk factor modification has been reviewed. Current regimen is being continued and close outpatient followup is advised for now. Job ID: [id number] DocumentID: [id number] Dictated Date: 07/20/2021 10:25:41 Turning Machine Operator Date: 07/20/2021 13:10:25 Dictated By: DELFINA KILLIAN MD, MA, FACP, FACC,
== END 2021-07-20 13:30 ==
LOC: CATH 07:52 → SDC 10:35 → CATH 13:30
PROVIDERS: ATTEND Internal Medicine Cardiovascular Disease
DX: R07.89 Other chest pain (principal); I47.1 Supraventricular tachycardia; E78.2 Mixed hyperlipidemia; I49.3 Ventricular premature depolarization; I11.9 Hypertensive heart disease without heart failure; Z79.890 Hormone replacement therapy; Z90.89 Acquired absence of other organs; Z79.899 Other long term (current) drug therapy; Z83.3 Family history of diabetes mellitus; Z82.49 Family history of ischemic heart disease and other diseases of the circulatory system; Z80.3 Family history of malignant neoplasm of breast
CPT/HCPCS: 80053; 80061; 85027; 85610; 85730; 87081; 93458; C1760; C1894; 36415

== ENCOUNTER → 2022-04-07 | Outpatient (CLI) | payer BC ==
[~2022-04-07] MED LIST changes: +ASPI-1238 PO; +GARL1000 PO; +LORA10TA7 PO; +METO50TA7 PO; +MULT-1136 PO; +OMEP40CA6 PO
--- NOTE | 2022-04-07 13:13 | Diagnostic Imaging Report ---
INDICATION: Routine screening. COMPARISON: 01/25/2021 and 11/25/2019. TECHNIQUE: 2D and 3D bilateral screening mammography was performed with CAD. FINDINGS: Both breasts remain heterogeneously dense, limiting the sensitivity of mammography. The circumscribed densities in the right breast appear stable and are most consistent with cysts. Several small circumscribed densities in the left breast are also noted, suggestive of cysts. No spiculated mass or malignant appearing microcalcifications are seen. The axillae are unremarkable. IMPRESSION: No mammographic features suspicious for malignancy are identified. ACR BI-RADS Category 2: Benign findings. Result letter will be mailed to the patient. Note: At least 10% of breast cancer is not imaged by mammography. Dictated by: Dictated on workstation # [id number]
== END ==
LOC: RAD 10:30
PROVIDERS: ATTEND Family Medicine
DX: Z12.31 Encounter for screening mammogram for malignant neoplasm of breast (principal)
CPT/HCPCS: 77063; 77067

== ENCOUNTER 2022-05-08 09:38 | Emergency (ER) | payer BC ==
[~2022-05-08] VITALS: Ht 160 cm; Wt 99.8 kg
[2022-05-08 09:41] VITALS: BP 189/104
[2022-05-08 10:06] LABS: BASOPHILS # (AUTO) 0.1 10^3/uL (0.0-0.1); BASOPHILS % (AUTO) 1 % (0-10); EOSINOPHILS # (AUTO) 0.1 10^3/uL (0.0-0.3); EOSINOPHILS % (AUTO) 2 % (0-10); HEMOGLOBIN 15.8 g/dL (11.5-16.0); MEAN CORPUSCULAR VOLUME 96 fL (80-99)
[2022-05-08 10:08] LABS: HEMATOCRIT 48 % (35-52); LYMPHOCYTES # (AUTO) 2.9 10^3/uL (1.0-4.0); LYMPHOCYTES % (AUTO) 34 % (12-44); MEAN CORPUSCULAR HEMOGLOBIN 31 pg (25-34); MEAN CORPUSCULAR HGB CONC 33 g/dL (32-36); MEAN PLATELET VOLUME 11.6 fL (9.0-12.2); MONOCYTES # (AUTO) 0.6 10^3/uL (0.0-1.0); MONOCYTES % (AUTO) 7 % (0-12); NEUTROPHILS # (AUTO) 4.8 10^3/uL (1.8-7.8); NEUTROPHILS % (AUTO) 56 % (42-75); PLATELET COUNT 262 10^3/uL (130-400); WHITE BLOOD COUNT 8.6 10^3/uL (4.3-11.0)
[2022-05-08 10:13] LABS: ALBUMIN 4.5 GM/DL (3.2-4.5)
[2022-05-08 10:14] LABS: CHLORIDE 105 MMOL/L (98-107); POTASSIUM 4.1 MMOL/L (3.6-5.0); SODIUM 140 MMOL/L (135-145)
[2022-05-08 10:15] LABS: CALCIUM 9.7 MG/DL (8.5-10.1)
[2022-05-08 10:16] LABS: GLUCOSE 104 MG/DL (70-105); TOTAL PROTEIN 7.7 GM/DL (6.4-8.2)
[2022-05-08 10:17] LABS: CARBON DIOXIDE 22 MMOL/L (21-32)
[2022-05-08 10:18] LABS: BILIRUBIN,TOTAL 0.5 MG/DL (0.1-1.0)
--- NOTE | 2022-05-08 10:18 | Diagnostic Imaging Report ---
PROCEDURE: CT head wo r/o stroke. TECHNIQUE: Multiple contiguous axial images were obtained through the brain without the use of intravenous contrast. Auto Exposure Controls were utilized during the CT exam to meet ALARA standards for radiation dose reduction. INDICATION: Left hand and arm weakness. Headaches. COMPARISON: None FINDINGS: The ventricles and cortical sulci are age-appropriate. There is a large hyperdense partially calcified mass in the right parietal lobe which measures 5.1 x 5.4 cm on axial imaging, and 4.9 cm craniocaudal. This causes significant mass effect on the right parietal lobe. Although there is some calcification. No definite hemorrhage is seen. There is no CT evidence of acute territorial ischemia. There is effacement of the posterior horn of the right lateral ventricle. There is about 3 mm of leftward midline shift. There is effacement of the cortical sulci adjacent to the mass. The right cerebellar tonsil is mildly low-lying. The calvarium appears intact. The visualized paranasal sinuses are clear. IMPRESSION: 1. Large partially calcified mass in the right parietal lobe causing surrounding mass effect and minimal leftward midline shift. No associated hemorrhage is seen. Further evaluation with MRI with and without contrast is recommended. 2. No CT evidence of acute territorial ischemia. Findings discussed with HILTON WOODWARD MD by Dr. Caro, on 05/08/2022 10:14 AM. Dictated by: Dictated on workstation # [id number]
[2022-05-08 10:19] LABS: ALKALINE PHOSPHATASE 72 U/L (40-136)
[2022-05-08 10:20] LABS: CREATININE SERUM 0.87 MG/DL (0.60-1.30); GFR ESTIMATED 75
[2022-05-08 10:21] LABS: BUN/CREATININE RATIO 15
[2022-05-08 10:23] LABS: ALANINE AMINOTRANSFERASE 34 U/L (0-55); FIBRIN DEGRADATION PRODUCTS 1.9 UG/ML (0.00-0.49)
--- NOTE | 2022-05-08 10:26 | Diagnostic Imaging Report ---
HISTORY: Left hand and arm weakness, headaches, stroke COMPARISON: None TECHNIQUE: Frontal view of the chest. FINDINGS: The lung volumes are normal. No consolidation is seen. There is no pleural effusion or pneumothorax. The cardiac silhouette is normal in size. There appears to be an old right rib fracture. There is a calcified granuloma on the left. IMPRESSION: 1. No acute pulmonary abnormality. Dictated by: Dictated on workstation # [id number]
--- NOTE | 2022-05-08 11:02 | ED Neurological Problem ---
General Chief Complaint: Neurological Problems Stated Complaint: L HAND / ARM WEAKNESS - HEADACHES Nursing Triage Note: PT AMBULATE TO ROOM 03 WITHOUT DIFFICULTY WITH C/O LEFT FACE NUMBNESS, LEFT HAND TINGLING/WEAKNESS, CONFUSION, DIZZYNESS, AND A MIGRAINE. PT REPORTS SHE NOTICED SYMPTOMS UPON WAKING UP THIS MORNING AT 0730. PT DENIES SYMPTOMS UPON ARRIVAL. PT STATES "MY HEAD IS JUST NOT RIGHT". Source: patient Exam Limitations: no limitations History of Present Illness Date Seen by Provider: May 08, 2022 Time Seen by Provider: 09:46 Initial Comments This 61-year-old woman presents to the emergency room with primary complaints of numbness in the left face, numbness and weakness of the left arm and hand, mild confusion, dizziness, right-sided headache, and aura of the left eye. She has a history of migraines in the past which she describes as ocular migraines. She denies any visual field cut deficits. Stroke activation was paged. There were no measurable deficits on exam and NIH score was 0. Although the score was 0, she did appear to have a little more difficulty raising the left leg and left arm than the right. There was no drift. Allergies and Home Medications Allergies Coded Allergies: No Known Drug Allergies (Unverified , 10/09/18) Patient Home Medication List Home Medication List Reviewed: Yes Amlodipine Besylate (Amlodipine Besylate) 5 Mg Tablet, 5 MG PO DAILY, (Reported) Entered as Reported by: GIACOMO VENTURA on 08/27/18 1116 Aspirin (Aspirin EC) 81 Mg Tablet.dr, 81 MG PO DAILY, (Reported) Entered as Reported by: BJ WALTER on 07/20/21 0831 Calcium Carbonate (Tums) 300 Mg Tab.chew, 300-600 MG PO Q8H PRN for INDIGESTION, (Reported) Entered as Reported by: GIACOMO VENTURA on 10/15/18 1013 Garlic (Garlic Oil) 1,000 Mg Capsule, 1,000 MG PO DAILY, (Reported) Entered as Reported by: BJ WALTER on 07/20/21 0831 Levothyroxine Sodium (Levothyroxine Sodium) 25 Mcg Tablet, 25 MCG PO DAILY, (Reported) Entered as Reported by: GIACOMO VENTURA on 08/27/18 1116 Loratadine (Loratadine) 10 Mg Tablet, 10 MG PO DAILY, (Reported) Entered as Reported by: BJ WALTER on 07/20/21830 Metoprolol Succinate (Metoprolol Succinate) 50 Mg Tab.er.24h, 50 MG PO DAILY, (Reported) Entered as Reported by: BJ WALTER on 07/20/21830 Multivitamin (Multivitamin) 1 Each Tablet, 1 EACH PO DAILY, (Reported) Entered as Reported by: BJ WALTER on 07/20/21830 Omeprazole (Omeprazole) 40 Mg Capsule.dr, 40 MG PO DAILY, (Reported) Entered as Reported by: BJ WALTER on 07/20/21830 Review of Systems Review of Systems Constitutional: no symptoms reported Eyes: See HPI Ears, Nose, Mouth, Throat: no symptoms reported Respiratory: no symptoms reported Cardiovascular: no symptoms reported Gastrointestinal: no symptoms reported Genitourinary: no symptoms reported Musculoskeletal: no symptoms reported Skin: no symptoms reported Psychiatric/Neurological: See HPI Endocrine: No Symptoms Reported Hematologic/Lymphatic: No Symptoms Reported Past Fcjykyh-Viwgss-Rjhnxe Hx Patient Social History Tobacco Use?: No Smoking Status: Never a Smoker Smokeless Tobacco Frequency: Never a User Use of E-Cig and/or Vaping dev: No Use of E-Cig and/or Vaping Cas: Never a User Substance use?: No Alcohol Use?: No Pt feels they are or have been: No Seasonal Allergies Seasonal Allergies: Yes Past Medical History Surgeries: Yes Cardiac (Ablation for AVNRT), Section, Orthopedic, Thyroidectomy (Partial) Respiratory: No Cardiac: Yes Coronary Artery Disease, Hypertension, Irregular Heartbeat (AVNRT, status post ablation) Neurological: Yes Headaches /Migraines : No Reproductive Disorders: No Genitourinary: No Gastrointestinal: Yes Gastroesophageal Reflux, Hiatal Hernia Musculoskeletal: No Endocrine: No HEENT: No Cancer: No Psychosocial: No Integumentary: No Physical Exam Vital Signs Vital Signs - First Documented 05/08/22 09:41 Temp 36.4 Pulse 64 Resp 19 B/P (MAP) 189/104 Pulse Ox 96 O2 Delivery Room Air Capillary Refill : Less Than 3 Seconds Height, Weight, BMI Height: 5'3.50" Weight: 205lbs. 0.0oz. 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 (Reported visual aura did not affect visual acuity), alert, normal mood/affect, oriented x 3, motor weakness (Very subtle weakness of the left upper and lower extremity but did not score out on the NIH) Crainal Nerves: normal hearing, normal speech, PERRL Coordination/Gait: normal gait Motor/Sensory: no sensory deficit Skin: normal color, warm/dry Stroke Onset of Symptoms Date of Onset of Symptoms: May 08, 2022 Time of Symptom Onset: 07:30 NIH Stroke Scale Assessment Select: Initial Level of Consciousness: 0=Alert (0), Level of Consciousness- Questions: 0=Answers both month/age (0), LOC Commands: 0=Performs both tasks (0), Gaze: Normal (0), Visual Lopez: 0=No visual loss (0), Facial Movement (Facial Paresis): 0=Normal symmetrical mnt (0), Motor Function-Arms Right: 0=No drift (0), Motor Function-Arms Left: 0=No drift (0), Motor Function-Legs Right: 0=No drift (0), Motor Function-Legs Left: 0=No drift (0), Limb Ataxia: 0=Absent (0), Sensory: 0=Normal:no loss (0), Best Language: 0=No aphasia (0), Dysarthria: 0=Normal (0), Extinction & Inattention: 0=No abnormality (0), Total: 0 Progress/Results/Core Measures Results/Orders Lab Results Laboratory Tests Test 05/08/22 09:46 05/08/22 10:00 Range/Units White Blood Count 8.6 4.3-11.0 10^3/uL Red Blood Count 5.03 3.80-5.11 10^6/uL Hemoglobin 15.8 11.5-16.0 g/dL Hematocrit 48 35-52 % Mean Corpuscular Volume 96 80-99 fL Mean Corpuscular Hemoglobin 31 25-34 pg Mean Corpuscular Hemoglobin Concent 33 32-36 g/dL Red Cell Distribution Width 13.4 10.0-14.5 % Platelet Count 262 130-400 10^3/uL Mean Platelet Volume 11.6 9.0-12.2 fL Immature Granulocyte % (Auto) 0 % Neutrophils (%) (Auto) 56 42-75 % Lymphocytes (%) (Auto) 34 12-44 % Monocytes (%) (Auto) 7 0-12 % Eosinophils (%) (Auto) 2 0-10 % Basophils (%) (Auto) 1 0-10 % Neutrophils # (Auto) 4.8 1.8-7.8 10^3/uL Lymphocytes # (Auto) 2.9 1.0-4.0 10^3/uL Monocytes # (Auto) 0.6 0.0-1.0 10^3/uL Eosinophils # (Auto) 0.1 0.0-0.3 10^3/uL Basophils # (Auto) 0.1 0.0-0.1 10^3/uL Immature Granulocyte # (Auto) 0.0 0.0-0.1 10^3/uL Percent Immature Platelet Fraction 9.5 H 0.0-7.6 % Prothrombin Time 13.0 12.2-14.7 SEC INR Comment 1.0 0.8-1.4 Activated Partial Thromboplast Time 30 24-35 SEC D-Dimer 1.90 H 0.00-0.49 UG/ML Sodium Level 140 135-145 MMOL/L Potassium Level 4.1 3.6-5.0 MMOL/L Chloride Level 105 98-107 MMOL/L Carbon Dioxide Level 22 21-32 MMOL/L Anion Gap 13 5-14 MMOL/L Blood Urea Nitrogen 13 7-18 MG/DL Creatinine 0.87 0.60-1.30 MG/DL Estimat Glomerular Filtration Rate 75 BUN/Creatinine Ratio 15 Glucose Level 104 70-105 MG/DL Calcium Level 9.7 8.5-10.1 MG/DL Corrected Calcium 9.3 8.5-10.1 MG/DL Total Bilirubin 0.5 0.1-1.0 MG/DL Aspartate Amino Transf (AST/SGOT) 31 5-34 U/L Alanine Aminotransferase (ALT/SGPT) 34 0-55 U/L Alkaline Phosphatase 72 40-136 U/L Troponin I < 0.028 <0.028 NG/ML Total Protein 7.7 6.4-8.2 GM/DL Albumin 4.5 3.2-4.5 GM/DL POC Glucose (Misc Panel) 108 H 70-105 mg/dL POC Sodium (Misc Panel) 141 138-146 mmol/L POC Potassium (Misc Panel) 4.0 3.5-4.9 mmol/L POC Chloride (Misc Panel) 105 98-109 mmol/L POC Total CO2 (Misc Panel) 25 24-29 mmol/L POC Anion Gap (Misc Panel) 16 10-20 mmol/L POC Blood Urea Nitrogen (Misc Panel 15 8-26 mg/dL POC Creatinine (Misc Panel) 1 0.6-1.3 mg/dL POC Hemoglobin (Calculated)(Misc) 17.0 12.0-17.0 g/dL POC Hematocrit (Misc Panel) 50 38-51 %PCV My Orders Orders - HILTON WOODWARD MD Cbc With Automated Diff (05/08/22 10:00) Protime With Inr (05/08/22 10:00) Partial Thromboplastin Time (05/08/22 10:00) Comprehensive Metabolic Panel (05/08/22 10:00) Fibrin Degradation Products (05/08/22 10:00) Troponin I Amandeep (05/08/22 10:00) Ua Culture If Indicated (05/08/22 10:00) Chest 1 View, Ap/Pa Only (05/08/22 10:00) Ekg Tracing (05/08/22 10:00) Nothing By Mouth (05/08/22 Lunch) Accucheck Stat ONCE (05/08/22 10:00) Ed Iv/Invasive Line Start (05/08/22 10:00) Ed Iv/Invasive Line Start (05/08/22 10:00) Vital Signs Stroke Patient Q15M (05/08/22 10:00) O2 (05/08/22 10:00) Intake & Output 06,14,22 (05/08/22 10:00) Monitor-Rhythm Ecg Trace Only (05/08/22 10:00) Dysphagia Screening Tool Q10MX1 (05/08/22 10:00) Post Thrombolytic Adminstratio (05/08/22 10:00) Lipid Panel (05/09/22 06:00) Ct Head Wo-R/O Stroke (05/08/22 10:02) I-Stat Bedside Testing (05/08/22 10:06) Vital Signs/I&O 05/08/22 05/08/22 09:41 09:41 Temp 36.4 Pulse 64 64 Resp 19 19 B/P (MAP) 189/104 189/104 (132) Pulse Ox 96 O2 Delivery Room Air Blood Pressure Mean: 132 Progress Progress Note : Time: 11:33 Progress Note Stroke activation was paged and patient was promptly taken to CT. A large right parietal brain mass with subtle midline shift was identified. There was no apparent hemorrhage associated with it. NIH stroke score was 0 although there did appear to be some very subtle weakness of the left extremities that did not score out on the NIH scale. Also, she reports a persistent visual aura in the left lower corner of vision of the left eye. This did not appear to affect her overall visual acuity. She denied any visual field cut deficits. I discussed the need to consult with a neurosurgeon with patient and her . They would like to stay in the [facility] if at all possible. I contacted Dr. Demarco at [facility]. She agrees that patient is appropriate to be evaluated at a neurology/neurosurgical capable facility. If the patient had a strong desire to follow-up outpatient, the alternative is to treat with Keppra, stop NSAIDs and aspirin, and see her in the clinic next week. Based on the multiple neurologic symptoms that were of abrupt acute onset this morning and the size of her mass with midline shift, the patient, family, and I agree that she needs prompt evaluation at a neurosurgical capable facility with the understanding immediate surgical interventions may not be needed. [facility] is the nearest facility that is capable of appropriately assessing her further with MRI, neurology, and neurosurgery capabilities. Initial ECG Impression Date: May 08, 2022 Initial ECG Impression Time: 09:51 Initial ECG Rate: 97 Initial ECG Rhythm: Normal Sinus Initial ECG Intervals: Normal Initial ECG Impression: Normal Comment Normal sinus rhythm with no ST elevation or depression. No abnormal intervals or axis deviation. Diagnostic Imaging Diagonstic Imaging: CT Plain Films/CT/US/NM/MRI: head Comments CT head viewed by me and report reviewed. See report below: NAME: RYAN MARIA [facility] REC#: [id number] PT STATUS: REG ER : 1960 PHYSICIAN: HILTON WOODWARD MD ADMIT DATE: 05/08/22/ER Draft Date of Exam:05/08/22 CT HEAD WO-R/O STROKE PROCEDURE: CT head wo r/o stroke. TECHNIQUE: Multiple contiguous axial images were obtained through the brain without the use of intravenous contrast. Auto Exposure Controls were utilized during the CT exam to meet ALARA standards for radiation dose reduction. INDICATION: Left hand and arm weakness. Headaches. COMPARISON: None FINDINGS: The ventricles and cortical sulci are age-appropriate. There is a large hyperdense partially calcified mass in the right parietal lobe which measures 5.1 x 5.4 cm on axial imaging, and 4.9 cm craniocaudal. This causes significant mass effect on the right parietal lobe. Although there is some calcification. No definite hemorrhage is seen. There is no CT evidence of acute territorial ischemia. There is effacement of the posterior horn of the right lateral ventricle. There is about 3 mm of leftward midline shift. There is effacement of the cortical sulci adjacent to the mass. The right cerebellar tonsil is mildly low-lying. The calvarium appears intact. The visualized paranasal sinuses are clear. IMPRESSION: 1. Large partially calcified mass in the right parietal lobe causing surrounding mass effect and minimal leftward midline shift. No associated hemorrhage is seen. Further evaluation with MRI with and without contrast is recommended. 2. No CT evidence of acute territorial ischemia. Findings discussed with HILTON WOODWARD MD by Dr. Mcdonald, on 05/08/2022 10:14 AM. Dictated on workstation # [id number] Dict: 05/08/22 1009 Trans: 05/08/22 1017 [facility] [id number] Interpreted by: LUKE MCDONALD MD Diagonstic Imaging: Xray Plain Films/CT/US/NM/MRI: chest Comments NAME: RYAN MARIA [facility] REC#: [id number] PT STATUS: REG ER : 1960 PHYSICIAN: HILTON WOODWARD MD ADMIT DATE: 05/08/22/ER Draft Date of Exam:05/08/22 CHEST 1 VIEW, AP/PA ONLY HISTORY: Left hand and arm weakness, headaches, stroke COMPARISON: None TECHNIQUE: Frontal view of the chest. FINDINGS: The lung volumes are normal. No consolidation is seen. There is no pleural effusion or pneumothorax. The cardiac silhouette is normal in size. There appears to be an old right rib fracture. There is a calcified granuloma on the left. IMPRESSION: 1. No acute pulmonary abnormality. Dictated on workstation # [id number] Dict: 05/08/22 1023 Trans: 05/08/22 1025 [facility] [id number] Interpreted by: LUKE MCDONALD MD Departure Impression Primary Impression: Brain mass Additional Impressions: Left arm weakness Visual aura Right-sided headache Disposition: XF T-TRM HOSP Condition: Stable Transfer Transfer Reason: Exceeds level of care Time Spoke to Accepting Phy: 10:56 Transfer Progress Notes Transfer was accepted from a neurosurgery perspective by Dr. Demarco. Transfer Facility: [facility] Method of Transfer: EMS Departure-Patient Inst. Referrals: JULEE BEARD MD (PCP/Family) Primary Care Physician HILTON WOODWARD MD May 08, 2022 11:02
[2022-05-08 11:45] LABS: BILIRUBIN,URINE NEGATIVE (NEGATIVE); CLARITY,URINE CLEAR; COLOR,URINE YELLOW; GLUCOSE, URINE (UA) NEGATIVE (NEGATIVE); KETONES,URINE NEGATIVE (NEGATIVE); LEUKOCYTE ESTERASE ,URINE NEGATIVE (NEGATIVE); NITRITE,URINE NEGATIVE (NEGATIVE); PH,URINE 6.5 (5-9); PROTEIN,URINE NEGATIVE (NEGATIVE)
[2022-05-08 11:53] LABS: BACTERIA,URINE NEGATIVE /HPF
[2022-05-08 14:27] VITALS: BP 154/73
== END 2022-05-08 14:27 | disposition short-term general hospital (02) ==
LOC: EDUNIT# 09:38 → ER 09:39
DX: G93.89 Other specified disorders of brain (principal); M62.81 Muscle weakness (generalized); Z86.69 Personal history of other diseases of the nervous system and sense organs; Z28.310 Unvaccinated for COVID-19
CPT/HCPCS: 36415; 70450; 71045; 80047; 80053; 81000; 84484; 85025; 85379; 85610; 85730; 93005; 93041